=== PATIENT | female | born 1950 | race Caucasian/White ===

== ENCOUNTER → 2018-01-06 06:55 | Outpatient (CLI) | payer MEDICARE, OTHER, SELFPAY ==
[2018-01-06 08:15] LABS: ALB/GLOB Ratio 1.2 RATIO (0.9-2.4); AST(SGOT) 13 U/L (15-37); Alanine Aminotransfer ALT/SGPT 20 U/L (13-56); Albumin, Serum 3.8 g/dL (3.2-5.0); Alkaline Phosphatase 81 U/L (45-117); Anion Gap 8 (5-15); BUN 13 mg/dL (7-18); BUN/Creat Ratio 16.6 RATIO (10-20); Calcium,Total 8.6 mg/dL (8.5-10.1); Chloride 107 mmol/L (98-107); Cholesterol 217 mg/dL (200); Creatinine, Serum 0.78 mg/dL (0.55-1.02); EST Glomerular Filtration Rate 77 mL/min (>60); Est Glom Filt Rate - Afr Amer 94 mL/min (>60); Globulin 3.2 g/dL (2.2-4.2); Glucose 91 mg/dL (74-106); High Density Lipoprotein 65 mg/dL; Potassium 4.1 mmol/L (3.5-5.1); Sodium Level 145 mmol/L (136-145); Triglycerides 114 mg/dL; Very Low Density Lipoprotein 23 mg/dL (5-40)
== END ==
PROVIDERS: Family Provider Internal Medicine; PCP Internal Medicine; Visit Provider Internal Medicine
DX: E78.5 Hyperlipidemia, unspecified (principal)
CPT/HCPCS: 36415; 80053; 80061

== ENCOUNTER → 2018-01-11 08:47 | Outpatient (CLI) | payer MEDICARE, OTHER, SELFPAY ==
--- NOTE | 2018-01-11 08:52 | BD_ITS ---
STUDY: DUAL ENERGY X-RAY ABSORPTIOMETRY / DXA REASON FOR EXAM: Female, 67 years old. The patient is postmenopausal. Loss of height. TECHNIQUE: Bone Mineral Density (BMD) measurements of lumbar spine and bilateral hips were obtained. COMPARISON: Comparison is made with prior study dated December 06, 2001. FINDINGS: Lumbar Spine (L1-L4): g/cm2 (1.112) / T-score (-0.6) / Z-score (1.1) Findings are suggestive of normal bone density with a low fracture risk. Increased thoracic kyphosis. Left Femur Total: g/cm2 (0.954) / T-score (-0.4) / Z-score (1.0) Left Femoral Neck: g/cm2 (0.852) / T-score (-1.3) / Z-score (0.3) Right Femur Total: g/cm2 (0.917) / T-score (-0.7) / Z-score (0.7) Right Femoral Neck: g/cm2 (0.877) / T-score (-1.2) / Z-score (0.5) The T-Scores on the most recent prior examination were: Lumbar Spine (L1-L4): There has been worsening of bone density since the previous examination. Left Femur Total: which represents a worsening of 5.8%. BD/Dexa Bone Density Study IMPRESSION: The patient is considered osteopenic as outlined below according to World Michael Organization (WHO) criteria with a moderate fracture risk. There has been worsening of bone density since the previous examination. Reference Information: The T-score is the number of standard deviations above or below the standard which is normal for young adults at their peak bone mineral density. The World Health Organization (WHO) interprets the T-scores as follows: Above -1 Normal bone density Between -1 and -2.5 Osteopenia Equal to / or below -2.5 Osteoporosis As a practical clinical guideline, osteopenia may be graded as follows: Mild -1 through -1.5 Moderate -1.6 through -2.0 Severe -2.1 through -2.4 The Z-score is the number of standard deviations above or below age-matched controls. A Z-score of less than -1.5 would be considered abnormal. References: 1. NIH Osteoporosis and Related Bone Diseases http://www.osteo.org 2. International Society for Clinical Densitometry http://www.iscd.org 3. National Osteoporosis Foundation http://www.nof.org Electronically Signed: Jim Mccracken MD at 8:32 EDT Tel [phone], Service support ,
== END ==
PROVIDERS: Family Provider Internal Medicine; PCP Internal Medicine; Visit Provider Internal Medicine
DX: M85.80 Other specified disorders of bone density and structure, unspecified site (principal); Z78.0 Asymptomatic menopausal state
CPT/HCPCS: 77080

== ENCOUNTER → 2018-02-28 08:26 | Outpatient (CLI) | payer MEDICARE, OTHER, SELFPAY ==
--- NOTE | 2018-02-28 08:28 | BI_ITS ---
MAMMOGRAPHY - BILATERAL SCREENING 3-D BRYANNA SYNTHESIS REASON FOR EXAM: Female, 67 years old. Bilateral Screening 3-D tomosynthesis PERTINENT HISTORY: Asymptomatic. [place] bilateral inverted nipples perpetration. Family breast carcinoma, grandmother age 60. TECHNIQUE: 2-D mammograms and 3-D Bryanna synthesis of the breast (s) were performed. CAD was performed. COMPARISON: 02/25/2017, 02/26/2016 FINDINGS: The breast composition is composed of scattered fibroglandular density. No new asymmetric density, dominant mass, dense spiculated masses, abnormal clustered microcalcifications, architectural distortion or skin thickening identified. Bilateral inverted nipples noted as given in history. There has been no significant change since the prior study. BI/SCREENING MAMM (CAD), BILAT IMPRESSION: No mammographic signs of malignancy. Routine yearly mammograms recommended. ASSESSMENT CATEGORY: BIRADS Category 2: Benign. A letter regarding these results will be sent to the patient by the facility within 30 days. FOLLOW UP RECOMMENDATION: Yearly follow up mammogram recommended. (A) Negative results should not deter biopsy as a palpable lesion should be followed on clinical grounds and biopsy performed if clinically persistent for 3 months or increasing size. Approximately 10% of breast cancers are not detected by mammography. A normal mammogram should not delay biopsy of a clinically suspicious abnormality. Electronically Signed: Darrell Quijano, at 20:03 EDT Tel , Service support ,
== END ==
PROVIDERS: Family Provider Internal Medicine; PCP Internal Medicine; Visit Provider Internal Medicine
DX: Z12.31 Encounter for screening mammogram for malignant neoplasm of breast (principal)
CPT/HCPCS: 77063; 77067

== ENCOUNTER → 2019-01-10 | Outpatient (CLI) | payer MEDICARE, OTHER, SELFPAY ==
[2018-07-05 14:40] VITALS: BMI 23.0
[2019-01-10 07:38] LABS: Hematocrit 40.7 % (37-47); Hemoglobin 13.3 g/dl (12.0-15.0); Mean Corpuscular Volume 97.4 fL (81-99); Red Blood Count 4.18 M/mm3 (4.2-5.4); White Blood Count 4.9 K/mm3 (4.4-11.0)
[2019-01-10 07:39] LABS: Absolute Lymphocyte Count 2.14 X10^3/ul (0.83-4.51); Absolute Neutrophil Count 2.3 X10^3/uL (2.0-7.7); Basophil# 0.03 X10^3/uL; Basophil% 0.6 % (0-1); Eosinophil# 0.09 X10^3/uL; Eosinophils% 1.8 % (0-5); Lymphocyte # 2.14 X10^3/ul (4.0); Lymphocyte % 43.9 % (19-41); Mean Corp Hgb Conc 32.7 g/gl (32-36); Mean Corpuscular Hgb 31.8 pg (27.0-32.0); Monocyte# 0.32 X10^3/uL; Monocyte% 6.6 % (0-10); Neutrophil % 47.1 % (47-70); POSITIVE COUNT NO; POSITIVE DIFFERENTIAL NO; POSITIVE MORPHOLOGY NO; Platelet Count 246 K/mm3 (150-450); RBC Distribution Width CV 12.1 % (11.6-14.6); RBC Distribution Width SD 42.8 fl (35.1-43.9)
[2019-01-10 07:51] LABS: Anion Gap 7 (5-15); BUN 10 mg/dL (7-18); BUN/Creat Ratio 13.9 RATIO (10-20); Calcium,Total 8.6 mg/dL (8.5-10.1); Chloride 106 mmol/L (98-107); Cholesterol 224 mg/dL (200); Creatinine, Serum 0.72 mg/dL (0.55-1.02); EST Glomerular Filtration Rate 85 mL/min (>60); Est Glom Filt Rate - Afr Amer 103 mL/min (>60); Glucose 90 mg/dL (74-106); High Density Lipoprotein 79 mg/dL; Potassium 3.9 mmol/L (3.5-5.1); Sodium Level 142 mmol/L (136-145); Triglycerides 123 mg/dL; Very Low Density Lipoprotein 25 mg/dL (5-40)
== END | disposition home or self-care (01) ==
LOC: LAB 07:06
PROVIDERS: Family Provider Internal Medicine; PCP Internal Medicine; Referring Provider Internal Medicine; Visit Provider Internal Medicine
DX: E78.5 Hyperlipidemia, unspecified (principal); M85.80 Other specified disorders of bone density and structure, unspecified site
CPT/HCPCS: 36415; 80048; 80061; 85025

== ENCOUNTER → 2019-03-02 07:47 | Outpatient (CLI) | payer MEDICARE, OTHER, SELFPAY ==
[2018-07-05 14:40] VITALS: BMI 23.0
[2019-01-23 09:04] VITALS: BMI 23.0
--- NOTE | 2019-03-02 07:48 | BI_ITS ---
MAMMOGRAPHY - BILATERAL SCREENING REASON FOR EXAM: Female, 68 years old. Routine annual screening examination. PERTINENT HISTORY: Grandmother with breast cancer. Chronic inversion of both nipples. TECHNIQUE: Digital bilateral breast bryanna (3D mammographic acquisition) in the CC and MLO projections. 2-D mediolateral oblique (MLO) and craniocaudad (CC) views of both breasts were obtained. CAD: Full Field Digital Mammography with Computer Added Detection was performed. COMPARISON: Comparison is made with prior study dated February 28, 2018. FINDINGS: Breast Composition: The breasts are heterogeneously dense, which may obscure small masses. There are no dominant masses or suspicious calcifications. No other significant abnormalities are identified. There has been no significant change since the prior study. BI/SCREEN MAMM (CAD) W/BRYANNA BILAT IMPRESSION: Stable bilateral screening mammogram. Yearly follow-up mammogram recommended. (A) ASSESSMENT CATEGORY: BIRADS Category 1: Negative. A letter regarding these results will be sent to the patient by the facility within 30 days. Approximately 10% of breast cancers are not detected by mammography. A normal mammogram should not delay biopsy of a clinically suspicious abnormality. [id number] Electronically Signed: Jim Mccracken, at 8:55 EDT , Service support ,
== END ==
PROVIDERS: Family Provider Internal Medicine; PCP Internal Medicine; Referring Provider Internal Medicine; Visit Provider Internal Medicine
DX: Z12.31 Encounter for screening mammogram for malignant neoplasm of breast (principal); Z80.3 Family history of malignant neoplasm of breast
CPT/HCPCS: 77063; 77067

== ENCOUNTER → 2020-01-12 09:42 | Outpatient (CLI) | payer MEDICARE, OTHER, SELFPAY ==
[2020-01-12 09:20] VITALS: BMI 23.0
[2020-01-12 12:17] LABS: Absolute Lymphocyte Count 1.33 X10^3/uL (0.83-4.51); Absolute Neutrophil Count 2.6 X10^3/uL (2.0-7.7); Basophil# 0.02 X10^3/uL; Basophil% 0.5 % (0-1); Eosinophil# 0.03 X10^3/uL; Eosinophils% 0.7 % (0-5); Hematocrit 39.8 % (37-47); Hemoglobin 12.7 g/dL (12.0-15.0); Lymphocyte # 1.33 X10^3/ul (4.0); Lymphocyte % 31.1 % (19-41); Mean Corp Hgb Conc 31.9 g/dL (32-36); Mean Corpuscular Hgb 31.8 pg (27.0-32.0); Mean Corpuscular Volume 99.5 fL (81-99); Mean Platelet Vol. 9.5 fl (6.2-12.0); Monocyte# 0.29 X10^3/uL; Monocyte% 6.8 % (0-10); NRBC Flagged by Analyzer 0 % (0-5); Neutrophil % 60.7 % (47-70); POSITIVE MORPHOLOGY YES; Platelet Count 263 K/mm3 (150-450); RBC Distribution Width CV 11.3 % (11.6-14.6); RBC Distribution Width SD 41.3 fl (35.1-43.9); White Blood Count 4.3 K/mm3 (4.4-11.0)
[2020-01-12 12:25] LABS: Differential Indicated SCAN CRITERIA MET
[2020-01-12 12:37] LABS: ALB/GLOB Ratio 1.2 RATIO (0.9-2.4); AST(SGOT) 17 U/L (15-37); Alanine Aminotransfer ALT/SGPT 23 U/L (13-56); Albumin, Serum 3.8 g/dL (3.2-5.0); Alkaline Phosphatase 82 U/L (45-117); Anion Gap 6 (5-15); BUN 14 mg/dL (7-18); BUN/Creat Ratio 19.1 RATIO (10-20); Chloride 104 mmol/L (98-107); Creatinine, Serum 0.73 mg/dL (0.55-1.02); EST Glomerular Filtration Rate 83 mL/min (>60); Est Glom Filt Rate - Afr Amer 101 mL/min (>60); Globulin 3.3 g/dL (2.2-4.2); Glucose 79 mg/dL (74-106); Potassium 3.8 mmol/L (3.5-5.1); Protein, Total 7.1 g/dL (6.4-8.2); Sodium Level 140 mmol/L (136-145)
[2020-01-12 12:40] LABS: Vitamin D,25 Hydroxy 36.1 ng/mL
== END ==
PROVIDERS: PCP Internal Medicine; Referring Provider Internal Medicine; Visit Provider Internal Medicine
DX: M85.80 Other specified disorders of bone density and structure, unspecified site (principal); E78.5 Hyperlipidemia, unspecified; F41.8 Other specified anxiety disorders
CPT/HCPCS: 36415; 80053; 82306; 85025

== ENCOUNTER → 2020-03-07 16:39 | Outpatient (CLI) | payer MEDICARE, OTHER, SELFPAY ==
[2020-03-07 16:34] VITALS: BMI 23.0
--- NOTE | 2020-03-07 16:41 | RAD_ITS ---
STUDY: X-RAY CHEST REASON FOR EXAM: Female, 69 years old. COUGH, CONGESTION, SORE THROAT, SERRANO, LOW GRADE FEVER TECHNIQUE: PA and lateral views of the chest. COMPARISON: None. FINDINGS: The lungs are clear and expanded. There is no demonstrated pleural abnormality. Normal size heart. Normal mediastinum and rufus. Normal visualized pulmonary arteries. Normal visualized aortic arch and descending thoracic aorta. Mild thoracolumbar dextroscoliosis. Soft tissues and bony structures are otherwise unremarkable. RAD/Chest PA and Lateral IMPRESSION: No acute findings. Electronically Signed: Gloria Moreno MD at 17:46 EDT Tel , Service support ,
== END ==
PROVIDERS: PCP Internal Medicine; Referring Provider Physician Assistant Surgical; Visit Provider Physician Assistant Surgical
DX: R09.89 Other specified symptoms and signs involving the circulatory and respiratory systems (principal)
CPT/HCPCS: 71046

== ENCOUNTER → 2020-03-08 10:26 | Outpatient (CLI) | payer MEDICARE, OTHER, SELFPAY ==
[2020-03-07 16:34] VITALS: BMI 23.0
== END ==
PROVIDERS: PCP Internal Medicine; Referring Provider Physician Assistant Surgical; Visit Provider Physician Assistant Surgical
DX: Z20.828 Contact with and (suspected) exposure to other viral communicable diseases (principal)
CPT/HCPCS: 87635; 94799; U0003

== ENCOUNTER → 2020-03-26 10:28 | Outpatient (CLI) | payer MEDICARE, OTHER, SELFPAY ==
[2020-01-12 09:20] VITALS: BMI 23.0
[2020-03-07 16:34] VITALS: BMI 23.0
--- NOTE | 2020-03-26 10:29 | BI_ITS ---
MAMMOGRAPHY - BILATERAL SCREENING REASON FOR EXAM: Female, 69 years old. Routine annual screening examination. PERTINENT HISTORY: Grandmother with breast cancer. Chronic inversion of both nipples. TECHNIQUE: Digital bilateral breast bryanna (3D mammographic acquisition) in the CC and MLO projections. 2-D mediolateral oblique (MLO) and craniocaudad (CC) views of both breasts were obtained. CAD: Full Field Digital Mammography with Computer Added Detection was performed. COMPARISON: Comparison is made with prior study dated 03/02/2019 and 02/28/2018. FINDINGS: Breast Composition: The breasts are heterogeneously dense, which may obscure small masses. There are no dominant masses or suspicious calcifications. No other significant abnormalities are identified. There has been no significant change since the prior study. BI/SCREEN MAMM (CAD) W/BRYANNA BILAT IMPRESSION: Stable bilateral screening mammogram. Yearly follow-up mammogram recommended. (A) ASSESSMENT CATEGORY: BIRADS Category 2: Benign. A letter regarding these results will be sent to the patient by the facility within 30 days. Approximately 10% of breast cancers are not detected by mammography. A normal mammogram should not delay biopsy of a clinically suspicious abnormality. [id number] Electronically Signed: Jim Mccracken, at 12:30 EDT , Service support ,
== END ==
PROVIDERS: PCP Internal Medicine; Referring Provider Internal Medicine; Visit Provider Internal Medicine
DX: Z12.31 Encounter for screening mammogram for malignant neoplasm of breast (principal); Z80.3 Family history of malignant neoplasm of breast
CPT/HCPCS: 77063; 77067

== ENCOUNTER 2020-09-26 14:28 | Outpatient (RCR) | payer MEDICARE, SELFPAY ==
[2020-09-23 13:30] VITALS: BMI 21.2
[2020-09-26] MEDS: COVID-19 VACC, MRNA(PFIZER)/PF 30 MCG/0.3 ML SYRINGE IM (08:19)
[2020-10-17] MEDS: COVID-19 VACC, MRNA(PFIZER)/PF 30 MCG/0.3 ML SYRINGE IM (08:01)
== END 2020-09-26 23:59 ==
LOC: IMMUN 14:28
PROVIDERS: PCP Internal Medicine; Visit Provider Family Medicine
DX: Z23 Encounter for immunization (principal)
CPT/HCPCS: 0001A; 0002A

== ENCOUNTER → 2020-12-30 14:22 | Outpatient (CLI) | payer MEDICARE, SELFPAY ==
[2020-12-30 13:35] VITALS: BMI 21.2
[2020-12-30 15:43] LABS: Absolute Lymphocyte Count 1.98 X10^3/uL (0.83-4.51); Absolute Neutrophil Count 2.6 X10^3/uL (2.0-7.7); Basophil# 0.04 X10^3/uL; Basophil% 0.8 % (0-1); Eosinophil# 0.04 X10^3/uL; Eosinophils% 0.8 % (0-5); Hematocrit 38.2 % (37-47); Lymphocyte # 1.98 X10^3/ul (0.83-4.51); Lymphocyte % 39.2 % (19-41); Mean Corp Hgb Conc 31.4 g/dL (32-36); Mean Corpuscular Hgb 31.1 pg (27.0-32.0); Mean Platelet Vol. 9.2 fl (6.2-12.0); Monocyte# 0.42 X10^3/uL; Monocyte% 8.3 % (0-10); NRBC Flagged by Analyzer 0 % (0-5); Neutrophil # 2.56 X10^3/uL (2.7-7.7); Neutrophil % 50.7 % (47-70); Platelet Count 272 K/mm3 (150-450); RBC Distribution Width CV 11.7 % (11.6-14.6); RBC Distribution Width SD 42.5 fl (35.1-43.9); Red Blood Count 3.86 M/mm3 (4.2-5.4); White Blood Count 5.1 K/mm3 (4.4-11.0)
[2020-12-30 16:21] LABS: ALB/GLOB Ratio 1.1 RATIO (0.9-2.4); AST(SGOT) 13 U/L (15-37); Alanine Aminotransfer ALT/SGPT 23 U/L (13-56); Albumin, Serum 3.5 g/dL (3.2-5.0); Alkaline Phosphatase 78 U/L (45-117); Anion Gap 7 (5-15); BUN 12 mg/dL (7-18); BUN/Creat Ratio 16.6 RATIO (10-20); Calcium,Total 8.7 mg/dL (8.5-10.1); Chloride 106 mmol/L (98-107); Cholesterol 215 mg/dL (200); Creatinine, Serum 0.72 mg/dL (0.55-1.02); EST Glomerular Filtration Rate 84 mL/min (>60); Est Glom Filt Rate - Afr Amer 102 mL/min (>60); Globulin 3.3 g/dL (2.2-4.2); Glucose 69 mg/dL (74-106); High Density Lipoprotein 70 mg/dL; Potassium 3.7 mmol/L (3.5-5.1); Protein, Total 6.8 g/dL (6.4-8.2); Sodium Level 142 mmol/L (136-145); Triglycerides 222 mg/dL; Very Low Density Lipoprotein 44 mg/dL (5-40)
== END ==
PROVIDERS: PCP Internal Medicine; Visit Provider Internal Medicine
DX: E78.5 Hyperlipidemia, unspecified (principal); F41.8 Other specified anxiety disorders
CPT/HCPCS: 36415; 80053; 80061; 85025

== ENCOUNTER → 2021-03-27 09:25 | Outpatient (CLI) | payer MEDICARE, OTHER, SELFPAY ==
[2020-12-30 13:35] VITALS: BMI 21.2
--- NOTE | 2021-03-27 09:31 | BI_ITS ---
MAMMOGRAPHY - BILATERAL SCREENING 3-D TOMOSYNTHESIS REASON FOR EXAM: Female, 70 years old. Breast cancer screening PERTINENT HISTORY: No significant family history. TECHNIQUE: 2-D mammograms and 3-D Tomosynthesis of the breast (s) were performed. CAD was performed. COMPARISON: 03/26/2020 FINDINGS: The breast composition is heterogeneously dense that can obscure small breast masses. Scattered benign calcifications are seen. No dense spiculated masses or suspicious microcalcifications are identified. No architectural distortion is identified. There is no skin thickening or retraction. There has been no significant change since the prior study. BI/SCRN MAMM (CAD)W/BRYANNA BILAT IMPRESSION: No mammographic signs of malignancy. Routine yearly mammograms recommended. ASSESSMENT CATEGORY: BIRADS Category 1: Negative. A letter regarding these results will be sent to the patient by the facility within 30 days. FOLLOW UP RECOMMENDATION: Yearly follow up mammogram recommended. (A) Approximately 10% of breast cancers are not detected by mammography. A normal mammogram should not delay biopsy of a clinically suspicious abnormality. Electronically Signed: Anastacio Ordonez MD at 10:33 EDT Tel , Service support ,
--- NOTE | 2021-03-27 09:34 | BD_ITS ---
STUDY: DUAL ENERGY X-RAY ABSORPTIOMETRY / DXA REASON FOR EXAM: Female, 70 years old. Osteopenia TECHNIQUE: Bone Mineral Density (BMD) measurements of lumbar spine and bilateral hips were obtained. COMPARISON: None. FINDINGS: Lumbar Spine (L1-L4): g/cm2 (0.940) / T-score (-1.0) / Z-score (1.3) Findings are suggestive of normal-borderline osteopenia with a low to moderate fracture risk. Left Femur Total: g/cm2 (0.888) / T-score (-0.4) / Z-score (1.2) Left Femoral Neck: g/cm2 (0.769) / T-score (-0.7) / Z-score (1.2) Right Femur Total: g/cm2 (0.781) / T-score (-1.3) / Z-score (0.3) Right Femoral Neck: g/cm2 (0.717) / T-score (-1.2) / Z-score (0.7) The T-Scores on the most recent prior examination were: Lumbar Spine (L1-L4): There has been slight worsening of bone density since the previous examination. Left Femur Total: -0.4 which represents no significant change. . Right Femur Total: -1.3 which represents slight worsening since previous exam, previous -0.7 . BD/Dexa Bone Density Study IMPRESSION: The patient is considered normal-borderline osteopenic as outlined below according to World Michael Organization (WHO) criteria with a low to moderate fracture risk. There has been slight worsening of bone density since the previous examination. Reference Information: The T-score is the number of standard deviations above or below the standard which is normal for young adults at their peak bone mineral density. The World Health Organization (WHO) interprets the T-scores as follows: Above -1 Normal bone density Between -1 and -2.5 Osteopenia Equal to / or below -2.5 Osteoporosis As a practical clinical guideline, osteopenia may be graded as follows: Mild -1 through -1.5 Moderate -1.6 through -2.0 Severe -2.1 through -2.4 The Z-score is the number of standard deviations above or below age-matched controls. A Z-score of less than -1.5 would be considered abnormal. References: 1. NIH Osteoporosis and Related Bone Diseases www osteo.org 2. International Society for Clinical Densitometry www iscd.org 3. National Osteoporosis Foundation www nof.org Electronically Signed: Ellen Smith MD at 3:00 EDT , Service support ,
== END ==
PROVIDERS: PCP Internal Medicine; Referring Provider Internal Medicine; Visit Provider Internal Medicine
DX: Z12.31 Encounter for screening mammogram for malignant neoplasm of breast (principal); N95.9 Unspecified menopausal and perimenopausal disorder
CPT/HCPCS: 77063; 77067; 77080

== ENCOUNTER → 2022-01-12 | Outpatient (CLI) | payer MEDICARE, OTHER, SELFPAY ==
[2022-01-12 15:20] LABS: Absolute Lymphocyte Count 1.07 X10^3/uL (0.83-4.51); Absolute Neutrophil Count 9.1 X10^3/uL (2.0-7.7); Basophil# 0.01 X10^3/uL; Basophil% 0.1 % (0-1); Hematocrit 41.8 % (37-47); Hemoglobin 13.4 g/dL (12.0-15.0); Lymphocyte # 1.07 X10^3/ul (0.83-4.51); Lymphocyte % 10.3 % (19-41); Mean Corp Hgb Conc 32.1 g/dL (32-36); Mean Corpuscular Hgb 32.1 pg (27.0-32.0); Mean Corpuscular Volume 100.2 fL (81-99); Mean Platelet Vol. 9.3 fl (6.2-12.0); Monocyte# 0.13 X10^3/uL; Monocyte% 1.2 % (0-10); NRBC Flagged by Analyzer 0 % (0-5); Neutrophil # 9.14 X10^3/uL (2.7-7.7); Neutrophil % 87.6 % (47-70); Platelet Count 319 K/mm3 (150-450); RBC Distribution Width SD 44.7 fl (35.1-43.9); Red Blood Count 4.17 M/mm3 (4.2-5.4); White Blood Count 10.4 K/mm3 (4.4-11.0)
[2022-01-12 16:03] LABS: ALB/GLOB Ratio 1.2 RATIO (0.9-2.4); AST(SGOT) 12 U/L (15-37); Alanine Aminotransfer ALT/SGPT 28 U/L (13-56); Albumin, Serum 3.7 g/dL (3.2-5.0); Alkaline Phosphatase 80 U/L (45-117); Anion Gap 4 (5-15); BUN 15 mg/dL (7-18); BUN/Creat Ratio 14.7 RATIO (10-20); Calcium,Total 9.1 mg/dL (8.5-10.1); Chloride 104 mmol/L (98-107); Cholesterol 236 mg/dL (200); Creatinine, Serum 1.02 mg/dL (0.55-1.02); EST Glomerular Filtration Rate 56 mL/min (>60); Est Glom Filt Rate - Afr Amer 68 mL/min (>60); Globulin 3.2 g/dL (2.2-4.2); Glucose 137 mg/dL (74-106); High Density Lipoprotein 101 mg/dL; Potassium 4.3 mmol/L (3.5-5.1); Protein, Total 6.9 g/dL (6.4-8.2); Sodium Level 140 mmol/L (136-145); Triglycerides 103 mg/dL; Very Low Density Lipoprotein 21 mg/dL (5-40)
== END | disposition home or self-care (01) ==
LOC: BIMLAB 13:33
PROVIDERS: PCP Internal Medicine; Referring Provider Internal Medicine; Visit Provider Internal Medicine
DX: I10 Essential (primary) hypertension (principal); M85.80 Other specified disorders of bone density and structure, unspecified site
CPT/HCPCS: 36415; 80053; 80061; 82306; 85025

== ENCOUNTER → 2022-02-12 | Outpatient (CLI) | payer MEDICARE, OTHER, SELFPAY ==
[2022-02-12 12:28] LABS: Anion Gap 3 (5-15); BUN 12 mg/dL (7-18); BUN/Creat Ratio 15.6 RATIO (10-20); Calcium,Total 9.3 mg/dL (8.5-10.1); Chloride 106 mmol/L (98-107); Creatinine, Serum 0.77 mg/dL (0.55-1.02); EST Glomerular Filtration Rate 78 mL/min (>60); Est Glom Filt Rate - Afr Amer 94 mL/min (>60); Glucose 83 mg/dL (74-106); Potassium 4.6 mmol/L (3.5-5.1); Sodium Level 140 mmol/L (136-145)
== END | disposition home or self-care (01) ==
LOC: BIMLAB 08:13
PROVIDERS: PCP Internal Medicine; Referring Provider Internal Medicine; Visit Provider Internal Medicine
DX: N17.9 Acute kidney failure, unspecified (principal)
CPT/HCPCS: 36415; 80048

== ENCOUNTER → 2022-03-31 | Outpatient (CLI) | payer MEDICARE, OTHER, SELFPAY ==
--- NOTE | 2022-03-31 08:34 | BI_ITS ---
MAMMOGRAPHY - BILATERAL SCREENING REASON FOR EXAM: Female, 71 years old. Routine annual screening examination. PERTINENT HISTORY: Grandmother with breast cancer. Chronic inversion of both nipples. TECHNIQUE: Digital bilateral breast bryanna (3D mammographic acquisition) in the CC and MLO projections. 2-D mediolateral oblique (MLO) and craniocaudad (CC) views of both breasts were obtained. CAD: Full Field Digital Mammography with Computer Added Detection was performed. COMPARISON: Comparison is made with prior study 03/27/2021 and 03/26/2020. FINDINGS: Breast Composition: The breasts are heterogeneously dense, which may obscure small masses. There are no dominant masses or suspicious calcifications. No other significant abnormalities are identified. There has been no significant change since the prior study. BI/SCRN MAMM (CAD)W/BRYANNA BILAT IMPRESSION: Stable bilateral screening mammogram. Yearly follow-up mammogram recommended. (A) ASSESSMENT CATEGORY: BIRADS Category 1: Negative. A letter regarding these results will be sent to the patient by the facility within 30 days. Approximately 10% of breast cancers are not detected by mammography. A normal mammogram should not delay biopsy of a clinically suspicious abnormality. [id number] Electronically Signed: Jim Mccracken MD at 8:37 EDT ,
== END | disposition home or self-care (01) ==
LOC: OPBI 08:33
PROVIDERS: PCP Internal Medicine; Visit Provider Internal Medicine
DX: Z12.31 Encounter for screening mammogram for malignant neoplasm of breast (principal); N64.59 Other signs and symptoms in breast; Z80.3 Family history of malignant neoplasm of breast
CPT/HCPCS: 77063; 77067

== ENCOUNTER 2022-07-05 09:35 | Emergency (ER) | payer MEDICARE, OTHER, SELFPAY ==
[2022-07-05 09:36] VITALS: BP 160/94; PULSE 78; RESP 16; TEMP 36.8; O2SAT 95; BMI 24.6
--- NOTE | 2022-07-05 10:05 | EDS_ITS ---
HPI HPI - Fall History of Present Illness Chief Complaint: Fall Informant: patient Narrative Narrative: About an hour ago patient missed the bottom step at [employer]. This caused her to fall forward as she was walking down the steps. She fell into the wall that was next to them. She hit her right rib cage. She did not hit her head. There is no loss of consciousness. She points to the right posterior lateral rib area as her source of pain. She has had problems with sciatica before but is not having any pain anywhere near the lower back. In fact she has no midline spinal pain anywhere. She is not on any blood thinners. Motion or very deep breaths make the pain worse. Pressing in the area makes it worse. Rest and not moving makes it better. She is not actually short of breath. [facility] Medical History Acute kidney injury Anxiety and depression Chronic back pain Health care maintenance Hyperlipidemia Hypertension Poison gisela dermatitis Routine health maintenance Seasonal allergies Home Medications cholecalciferol (vitamin D3) 25 mcg (1,000 unit) capsule 1,000 unit PO ONCE 07/16/17 [History Last Taken Unknown] fish oil-dha-epa 1,200 mg-144 mg-216 mg capsule cap PO 07/16/17 [History Last Taken Unknown] multivitamin 1 tab PO QAM 07/16/17 [History Last Taken Unknown] ibuprofen 400 mg tablet 400 mg PO BID PRN pain #60 tabs 09/23/20 [Rx Last Taken Unknown] blood pressure monitor #1 ea 09/24/20 [Rx Last Taken Unknown] fexofenadine 60 mg tablet (Carmina Allergy) 60 mg PO BID #60 tabs 12/29/21 [Rx Last Taken Unknown] betamethasone, augmented 0.05 % topical cream applic topical 01/12/22 [History Last Taken Unknown] prednisone 20 mg tablet mg PO 01/12/22 [History Last Taken Unknown] citalopram 10 mg tablet 10 mg PO QDAY #90 tabs 01/27/22 [Rx Last Taken Unknown] oxycodone-acetaminophen 5 mg-325 mg tablet (Percocet) 1 tab PO Q6H PRN pain 5 days #20 tabs 07/05/22 [Rx Last Taken Unknown] Allergy/AdvReac Type Severity Reaction Status Date / Time erythromycin base Allergy Unknown Unknown Verified 01/12/22 13:12 loratadine [From Claritin] Allergy Unknown Unknown Verified 01/12/22 13:12 naproxen [From Aleve] Allergy Rash Verified 01/12/22 13:12 Family History Father Heart disease developed in his 90s Cancer skin CA in his 90s Mother Heart disease developed in her 90s Surgical History History of tonsillectomy Social History Smoking Status: Never smoker alcohol intake: never substance use type: does not use what type of physical activity do you participate in: walking and yoga frequency: daily ROS ROS ED Constitutional Constitutional ED: Denies fever(s) Eyes Eyes: Denies blurry vision, change in vision or diplopia ENT ENT ED: Denies rhinorrhea Cardiovascular Cardiovascular: Reports chest pain; Denies palpitations or racing heartbeat Respiratory/Chest Respiratory/Chest: Denies cough, dyspnea or sputum Gastrointestinal Gastrointestinal: Denies abdominal pain, nausea or vomiting Genitourinary Genitourinary ED: Denies hematuria Musculoskeletal Musculoskeletal: Reports other Details: See history of present illness. ; Denies neck pain Integumentary Denies Abrasions Neurologic Neurologic: Denies headache(s), paresthesias or weakness Hematologic/Lymphatic Hematologic/Lymphatic: Denies easy bleeding or easy bruising Allergic/Immunologic Allergic/Immunologic ED: Denies urticaria EXAM Physical Exam Const Vital Signs: 07/05/22 09:36 07/05/22 09:39 Temperature 98.3 F Temperature Source Temporal Pulse Rate 78 Respiratory Rate 16 Respiratory Effort Normal Blood Pressure 160/94 H Blood Pressure Mean 116 Pulse Ox 95 Oxygen Delivery Method Room Air Positive well nourished and well developed General Appearance ED: well developed HEENT Reports normocephalic atraumatic; Negative for trauma, contusion, hematoma or tenderness Eyes EOMs intact bilaterally Neck full ROM and no lymphadenopathy General: Negative for tenderness Chest Wall inspection of chest normal Chest Narrative: I see no bruising or swelling at this time. Resp normal respiratory effort Resp Narrative: Breathing is actually easy and unlabored. Saturations are 94 to 98% on room air showing no hypoxia. There is some right posterior lateral rib tenderness but I do not feel crepitance. I do not feel subcu air. Cardio regular rate, regular rhythm and no murmurs Cardio Narrative: No muffled heart tones GI non-tender Back/Spine no CVA tenderness Extremity Extremity Narrative: Free range of motion of all extremities. No pain with motion. No pain with lifting her legs or compression over the hips. Neuro no focal motor deficits and no sensory deficits noted Sensorium / Orientation: alert Psych mental status grossly normal Skin Skin Narrative: No contusions or abrasions he had at this time. MDM MDM MDM Narrative Medical decision making narrative: X-rays do show possible fracture of the right second rib. Considering the clinical picture and location I think this is acute. I discussed with patient plan. Although she is allergic to Aleve she has Motrin 400 at home and will take this for pain. I will write for some Percocet because I think she may need something stronger. We will give her incentive spirometer. We discussed care and reasons to return including risks of pneumonia. We will walk the patient in the department. If there is anything else that develops discomfort or pain we we will evaluate that further at that time. At this time nothing else is hurting her. Radiography Diagnostic Testing: Clinical Impression(s) from Imaging Studies Ribs w/Chest X-Ray 07/05/22 10:13 IMPRESSION: No acute cardiopulmonary abnormality. Nondisplaced acute versus chronic fracture of the right seventh rib. Electronically Signed: Akbar Mi MD at 10:45 EST Reading Location ID and State: [facility] / [place] Tel , Service support , 3 views of the patient's chest and right ribs looked at by me and read by radiology show suspected small nondisplaced fracture of the right seventh rib. Discharge Plan Triage Chief Complaint: Fall ED Provider: Andi Villatoro Dx/Rx/DC Orders Clinical Impression: Fall from steps, Right rib fracture Instructions: ED Rib Fracture Prescriptions: New oxycodone-acetaminophen [Percocet] 5-325 mg tablet 1 tab PO Q6H PRN (Reason: pain) 5 Days Qty: 20 0RF No Action multivitamin tablet 1 tab PO QAM cholecalciferol (vitamin D3) 1,000 unit capsule 1,000 unit PO ONCE fish oil-dha-epa 1,200-144-216 mg capsule PO ibuprofen 400 mg tablet 400 mg PO BID PRN (Reason: pain) Qty: 60 1RF betamethasone, augmented 0.05 % cream topical prednisone 20 mg tablet PO fexofenadine [Carmina Allergy] 60 mg tablet 60 mg PO BID Qty: 60 0RF (DME) blood pressure monitor Kit See Rx Instructions .MEDSUPPLY Qty: 1 0RF Rx Instructions: Check blood pressure daily for hypertension I10 citalopram 10 mg tablet 10 mg PO QDAY Qty: 90 3RF Primary Care Provider: Stephane Anna Referrals: Stephane Anna MD [Primary Care Provider] - 1 Week if not improving Disposition Disposition: Home, Self Care
[2022-07-05] MEDS: oxyCODONE 5 MG Tablet PO (10:11)
--- NOTE | 2022-07-05 10:13 | RAD_ITS ---
EXAM: XR RIGHT RIBS AND AP CHEST, 3 OR MORE VIEWS CLINICAL INDICATION: Trauma TECHNIQUE: Frontal and oblique views of the right ribs and frontal view of the chest. This report was created using [employer] report generation technology. COMPARISON: XR Ribs Chest dated 03/07/2020 FINDINGS: LUNGS AND PLEURAL SPACES: Normal. No consolidation or edema. No pneumothorax. No effusion. HEART: Normal. Normal heart size. MEDIASTINUM: No mediastinal or hilar mass. BONES/JOINTS: Mild deformity of the lateral aspect of the right seventh rib which may represent acute or chronic fracture. Moderate dextroscoliosis of the thoracolumbar junction. RAD/Ribs Uni Min 3V w/PA Chest IMPRESSION: No acute cardiopulmonary abnormality. Nondisplaced acute versus chronic fracture of the right seventh rib. Electronically Signed: Akbar Mi MD at 10:45 EST ,
== END 2022-07-05 11:35 | disposition home or self-care (01) ==
PROVIDERS: Emergency Provider Emergency Medicine; PCP Internal Medicine; Visit Provider Emergency Medicine
DX: S22.31XA Fracture of one rib, right side, initial encounter for closed fracture (principal); M54.9 Dorsalgia, unspecified; I10 Essential (primary) hypertension; E78.5 Hyperlipidemia, unspecified; W10.9XXA Fall (on) (from) unspecified stairs and steps, initial encounter; G89.29 Other chronic pain
CPT/HCPCS: 71101; 99284

== ENCOUNTER 2022-10-16 18:35 | Emergency (ER) | payer MEDICARE, OTHER, SELFPAY ==
[2022-10-16 18:37] VITALS: BP 149/93; PULSE 92; RESP 18; TEMP 35.8; O2SAT 97; BMI 24.3
[2022-10-16 20:04] VITALS: BP 146/88; PULSE 86; O2SAT 99
[2022-10-16] MEDS: Ondansetron ODT 4 MG Tablet PO (20:49)
[2022-10-16] MEDS: oxyCODONE 5 MG Tablet PO (20:49)
--- NOTE | 2022-10-16 23:00 | ED.VIS.LOWEX ---
HPI History of Present Illness Chief Complaint: Back Narrative Narrative: 70-year-old female with history of sciatica presenting with right gluteal pain. She states its been present for 8 days. Radiates to her posterior and lateral thigh. She states she tried [id number] NSAIDs and is not helping. Does not have any lower back pain. She is able to ambulate with the difficulty. She states been using heating pads without relief. [facility] Medical History Acute kidney injury Anxiety and depression Chronic back pain Health care maintenance Hyperlipidemia Hypertension Poison gisela dermatitis Routine health maintenance Seasonal allergies Home Medications cholecalciferol (vitamin D3) 25 mcg (1,000 unit) capsule 1,000 unit PO ONCE 07/16/17 [History Last Taken Unknown] fish oil-dha-epa 1,200 mg-144 mg-216 mg capsule cap PO 07/16/17 [History Last Taken Unknown] multivitamin 1 tab PO QAM 07/16/17 [History Last Taken Unknown] ibuprofen 400 mg tablet 400 mg PO BID PRN pain #60 tabs 09/23/20 [Rx Last Taken Unknown] blood pressure monitor #1 ea 09/24/20 [Rx Last Taken Unknown] fexofenadine 60 mg tablet (Carmina Allergy) 60 mg PO BID #60 tabs 12/29/21 [Rx Last Taken Unknown] betamethasone, augmented 0.05 % topical cream applic topical 01/12/22 [History Last Taken Unknown] prednisone 20 mg tablet mg PO 01/12/22 [History Last Taken Unknown] citalopram 10 mg tablet 10 mg PO QDAY #90 tabs 01/27/22 [Rx Last Taken Unknown] oxycodone-acetaminophen 5 mg-325 mg tablet (Percocet) 1 tab PO Q6H PRN pain 5 days #20 tabs 07/05/22 [Rx Last Taken Unknown] ondansetron 4 mg disintegrating tablet 4 mg PO Q8H PRN PRN Nausea #14 tabs 10/16/22 [Rx Last Taken Unknown] oxycodone-acetaminophen 5 mg-325 mg tablet (Percocet) 1 tab PO Q8H PRN pain 3 days #12 tabs 10/16/22 [Rx Last Taken Unknown] Allergy/AdvReac Type Severity Reaction Status Date / Time erythromycin base Allergy Unknown Unknown Verified 10/16/22 18:36 loratadine [From Claritin-D] Allergy Rash Verified 10/16/22 18:36 naproxen [From Aleve] Allergy Rash Verified 10/16/22 18:36 pseudoephedrine Allergy Rash Verified 10/16/22 18:36 [From Claritin-D] Family History Father Heart disease developed in his s Cancer skin CA in his s Mother Heart disease developed in her s Surgical History History of tonsillectomy Social History Smoking Status: Never smoker alcohol intake: never substance use type: does not use what type of physical activity do you participate in: walking and yoga frequency: daily ROS ROS ED Constitutional Constitutional ED: Denies chills, fever(s) or sweats Eyes Eyes: Denies blurry vision or change in vision ENT ENT ED: Denies ear pain or sore throat Cardiovascular Cardiovascular: Denies chest pain, palpitations or racing heartbeat Respiratory/Chest Respiratory/Chest: Denies cough, dyspnea or sputum Gastrointestinal Gastrointestinal: Denies abdominal pain, constipation, diarrhea, nausea or vomiting Genitourinary Genitourinary ED: Denies dysuria, hematuria or urinary frequency Musculoskeletal Musculoskeletal: Reports other Details: Right gluteal pain and right hamstring pain ; Denies arthralgias Integumentary Denies abscess, Abrasions or rash Neurologic Neurologic: Denies headache(s), paresthesias or weakness Psychiatric Psychiatric: Denies anxiety, depression, suicidal ideation or suicidal thoughts Endocrine Endocrinology: Denies polydipsia or polyuria EXAM Physical Exam Const Vital Signs: 10/16/22 18:37 10/16/22 20:04 Temperature 96.5 F L Temperature Source Temporal Pulse Rate 92 86 Respiratory Rate 18 Blood Pressure 149/93 H 146/88 H Blood Pressure Mean 111 107 Pulse Ox 97 99 Oxygen Delivery Method Room Air Room Air Positive well nourished General Appearance ED: NAD HEENT Reports moist mucous membranes Resp normal respiratory effort Cardio regular rate and regular rhythm Extremity Extremity Narrative: Tenderness to palpation in the right gluteal region. She also has some tenderness in the right lateral thigh and posterior thigh. This is worsened with flexion of the hip. Neuro oriented x3 Sensorium / Orientation: alert Motor Exam: strength 5/5 throughout MDM MDM MDM Narrative Medical decision making narrative: Patient presents with symptoms of sciatica. She is tried NSAIDs without relief. She has been doing this for 8 days. Patient states she has had oxycodone before but she would need something for nausea to go with that. She was given Zofran and oxycodone in the ER. She be given a short supply of Percocet for home. I do not believe she needs any imaging today.Return precautions were discussed. Impression: 1. Sciatica Discharge Plan Triage Chief Complaint: Back Other Complaint: Lower Extremity Injury ED Provider: Vikas Christensen Dx/Rx/DC Orders Instructions: Sciatica Exercise, ED Sciatica Prescriptions: New oxycodone-acetaminophen [Percocet] 5-325 mg tablet 1 tab PO Q8H PRN (Reason: pain) 3 Days Qty: 12 0RF ondansetron 4 mg tablet,disintegrating 4 mg PO Q8H PRN PRN (Reason: Nausea) Qty: 14 0RF No Action multivitamin tablet 1 tab PO QAM cholecalciferol (vitamin D3) 1,000 unit capsule 1,000 unit PO ONCE fish oil-dha-epa 1,200-144-216 mg capsule PO ibuprofen 400 mg tablet 400 mg PO BID PRN (Reason: pain) Qty: 60 1RF betamethasone, augmented 0.05 % cream topical prednisone 20 mg tablet PO fexofenadine [Carmina Allergy] 60 mg tablet 60 mg PO BID Qty: 60 0RF oxycodone-acetaminophen [Percocet] 5-325 mg tablet 1 tab PO Q6H PRN (Reason: pain) 5 Days Qty: 20 0RF (DME) blood pressure monitor Kit See Rx Instructions .MEDSUPPLY Qty: 1 0RF Rx Instructions: Check blood pressure daily for hypertension I10 citalopram 10 mg tablet 10 mg PO QDAY Qty: 90 3RF Primary Care Provider: Stephane Anna Referrals: Stephane Anna MD [Primary Care Provider] - Disposition Disposition: Home, Self Care Discharge Date/Time: 10/16/22 21:06
== END 2022-10-16 21:06 | disposition home or self-care (01) ==
PROVIDERS: Emergency Provider Student in an Organized Health Care Education/Training Program; PCP Internal Medicine; Visit Provider Student in an Organized Health Care Education/Training Program
DX: M54.30 Sciatica, unspecified side (principal); I10 Essential (primary) hypertension; Z79.1 Long term (current) use of non-steroidal anti-inflammatories (NSAID); F41.8 Other specified anxiety disorders; Z79.899 Other long term (current) drug therapy
CPT/HCPCS: 99283

== ENCOUNTER → 2023-01-13 | Outpatient (CLI) | payer MEDICARE, OTHER, SELFPAY ==
[2023-01-13 12:44] LABS: Absolute Lymphocyte Count 1.62 X10^3/uL (0.83-4.51); Absolute Neutrophil Count 3.5 X10^3/uL (2.0-7.7); Basophil# 0.04 X10^3/uL; Basophil% 0.7 % (0-1); Hematocrit 39.7 % (37-47); Hemoglobin 12.6 g/dL (12.0-15.0); Lymphocyte # 1.62 X10^3/ul (0.83-4.51); Mean Corp Hgb Conc 31.7 g/dL (32-36); Mean Corpuscular Hgb 31.8 pg (27.0-32.0); Mean Corpuscular Volume 100.3 fL (81-99); Mean Platelet Vol. 9.6 fl (6.2-12.0); Monocyte# 0.45 X10^3/uL; Monocyte% 8.1 % (0-10); NRBC Flagged by Analyzer 0 % (0-5); Neutrophil # 3.46 X10^3/uL (2.7-7.7); Neutrophil % 61.8 % (47-70); Platelet Count 247 K/mm3 (150-450); RBC Distribution Width CV 11.8 % (11.6-14.6); RBC Distribution Width SD 43.1 fl (35.1-43.9); Red Blood Count 3.96 M/mm3 (4.2-5.4); White Blood Count 5.6 K/mm3 (4.4-11.0)
[2023-01-13 13:26] LABS: ALB/GLOB Ratio 1.1 RATIO (0.9-2.4); AST(SGOT) 14 U/L (15-37); Alanine Aminotransfer ALT/SGPT 18 U/L (13-56); Albumin, Serum 3.7 g/dL (3.2-5.0); Alkaline Phosphatase 85 U/L (45-117); Anion Gap 3 (5-15); BUN 11 mg/dL (7-18); BUN/Creat Ratio 14.9 RATIO (10-20); Calcium,Total 9.4 mg/dL (8.5-10.1); Chloride 107 mmol/L (98-107); Cholesterol 218 mg/dL (200); Creatinine, Serum 0.74 mg/dL (0.55-1.02); EST Glomerular Filtration Rate 82 mL/min (>60); Est Glom Filt Rate - Afr Amer 99 mL/min (>60); Globulin 3.4 g/dL (2.2-4.2); Glucose 100 mg/dL (74-106); High Density Lipoprotein 66 mg/dL; Potassium 4.9 mmol/L (3.5-5.1); Protein, Total 7.1 g/dL (6.4-8.2); Sodium Level 140 mmol/L (136-145); Triglycerides 151 mg/dL; Very Low Density Lipoprotein 30 mg/dL (5-40)
[2023-01-13 13:29] LABS: Vitamin D,25 Hydroxy 28.4 ng/mL
== END | disposition home or self-care (01) ==
LOC: BIMLAB 09:40
PROVIDERS: PCP Internal Medicine; Referring Provider Internal Medicine; Visit Provider Internal Medicine
DX: E78.2 Mixed hyperlipidemia (principal); I10 Essential (primary) hypertension; M85.80 Other specified disorders of bone density and structure, unspecified site
CPT/HCPCS: 36415; 80053; 80061; 82306; 85025

== ENCOUNTER → 2023-04-06 | Outpatient (CLI) | payer MEDICARE, OTHER, SELFPAY ==
--- NOTE | 2023-04-06 09:14 | BI_ITS ---
MAMMOGRAPHY - BILATERAL SCREENING REASON FOR EXAM: Female, 72 years old. Routine annual screening examination. PERTINENT HISTORY: Grandmother with breast cancer. Chronic inversion of both nipples. TECHNIQUE: Digital bilateral breast bryanna (3D mammographic acquisition) in the CC and MLO projections. 2-D mediolateral oblique (MLO) and craniocaudad (CC) views of both breasts were obtained. CAD: Full Field Digital Mammography with Computer Added Detection was performed. COMPARISON: Comparison is made with prior study March 31, 2022 and March 27, 2021. FINDINGS: Breast Composition: The breasts are heterogeneously dense, which may obscure small masses. There are no dominant masses or suspicious calcifications. No other significant abnormalities are identified. There has been no significant change since the prior study. BI/SCRN MAMM (CAD)W/BRYANNA BILAT IMPRESSION: Stable bilateral screening mammogram. Yearly follow-up mammogram recommended. (A) ASSESSMENT CATEGORY: BIRADS Category 1: Negative. A letter regarding these results will be sent to the patient by the facility within 30 days. Approximately 10% of breast cancers are not detected by mammography. A normal mammogram should not delay biopsy of a clinically suspicious abnormality. [id number] Electronically Signed: Jim Mccracken MD at 11:07 EDT ,
--- NOTE | 2023-04-06 09:20 | BD_ITS ---
STUDY: DUAL ENERGY X-RAY ABSORPTIOMETRY / DXA REASON FOR EXAM: Female, 72 years old. Post menopausal TECHNIQUE: Bone Mineral Density (BMD) measurements of lumbar spine and bilateral hips were obtained. COMPARISON: Comparison is made with prior study March 27, 2021. FINDINGS: Lumbar Spine (L1-L4): g/cm2 (0.949) / T-score (-0.9) / Z-score (1.5) Findings are suggestive of normal bone density with a low fracture risk. Left Femur Total: g/cm2 (0.885) / T-score (-0.5) / Z-score (1.3) Left Femoral Neck: g/cm2 (0.701) / T-score (-1.3) / Z-score (0.7) Right Femur Total: g/cm2 (0.805) / T-score (-1.1) / Z-score (0.6) Right Femoral Neck: g/cm2 (0.716) / T-score (-1.2) / Z-score (0.8) The T-Scores on the most recent prior examination were: Lumbar Spine (L1-L4): There has been improvement of bone density since the previous examination. Left Femur Total: which represents a worsening of 0.4%. Right Femur Total: which represents an improvement of 3.1%. BD/Dexa Bone Density Study IMPRESSION: The patient is considered osteopenic as outlined below according to World Michael Organization (WHO) criteria with a low fracture risk. There has been improvement of bone density since the previous examination. Reference Information: The T-score is the number of standard deviations above or below the standard which is normal for young adults at their peak bone mineral density. The World Health Organization (WHO) interprets the T-scores as follows: Above -1 Normal bone density Between -1 and -2.5 Osteopenia Equal to / or below -2.5 Osteoporosis As a practical clinical guideline, osteopenia may be graded as follows: Mild -1 through -1.5 Moderate -1.6 through -2.0 Severe -2.1 through -2.4 The Z-score is the number of standard deviations above or below age-matched controls. A Z-score of less than -1.5 would be considered abnormal. References: 1. NIH Osteoporosis and Related Bone Diseases www osteo.org 2. International Society for Clinical Densitometry www iscd.org 3. National Osteoporosis Foundation www nof.org Electronically Signed: Jim Mccracken MD at 8:44 EDT ,
== END | disposition home or self-care (01) ==
LOC: OPBI 09:12
PROVIDERS: PCP Internal Medicine; Referring Provider Internal Medicine; Visit Provider Internal Medicine
DX: Z12.31 Encounter for screening mammogram for malignant neoplasm of breast (principal); Z78.0 Asymptomatic menopausal state; Z80.3 Family history of malignant neoplasm of breast
CPT/HCPCS: 77063; 77067; 77080

== ENCOUNTER → 2024-01-24 | Outpatient (CLI) | payer MEDICARE, OTHER, SELFPAY ==
[2024-01-24 12:17] LABS: Absolute Lymphocyte Count 1.69 X10^3/uL (0.83-4.51); Basophil# 0.03 X10^3/uL; Basophil% 0.6 % (0-1); Hematocrit 40.3 % (37-47); Lymphocyte # 1.69 X10^3/ul (0.83-4.51); Lymphocyte % 33.2 % (19-41); Mean Corp Hgb Conc 32.3 g/dL (32-36); Mean Corpuscular Hgb 31.9 pg (27.0-32.0); Mean Corpuscular Volume 98.8 fL (81-99); Mean Platelet Vol. 9.5 fl (6.2-12.0); Monocyte# 0.38 X10^3/uL; Monocyte% 7.5 % (0-10); NRBC Flagged by Analyzer 0 % (0-5); Neutrophil # 2.98 X10^3/uL (2.7-7.7); Neutrophil % 58.5 % (47-70); Platelet Count 285 K/mm3 (150-450); RBC Distribution Width CV 11.6 % (11.6-14.6); RBC Distribution Width SD 42.2 fl (35.1-43.9); Red Blood Count 4.08 M/mm3 (4.2-5.4); White Blood Count 5.1 K/mm3 (4.4-11.0)
[2024-01-24 12:44] LABS: ALB/GLOB Ratio 1.1 RATIO (0.9-2.4); AST(SGOT) 12 U/L (15-37); Alanine Aminotransfer ALT/SGPT 16 U/L (13-56); Albumin, Serum 3.7 g/dL (3.2-5.0); Alkaline Phosphatase 79 U/L (45-117); Anion Gap 6 (5-15); BUN 12 mg/dL (7-18); BUN/Creat Ratio 15.4 RATIO (10-20); Calcium,Total 9.4 mg/dL (8.5-10.1); Chloride 107 mmol/L (98-107); Cholesterol 241 mg/dL (200); Creatinine, Serum 0.78 mg/dL (0.55-1.02); EST Glomerular Filtration Rate 76 mL/min (>60); Est Glom Filt Rate - Afr Amer 92 mL/min (>60); Globulin 3.3 g/dL (2.2-4.2); Glucose 107 mg/dL (74-106); High Density Lipoprotein 72 mg/dL; Potassium 4.9 mmol/L (3.5-5.1); Sodium Level 141 mmol/L (136-145); Triglycerides 152 mg/dL; Very Low Density Lipoprotein 30 mg/dL (5-40)
== END | disposition home or self-care (01) ==
LOC: BIMLAB 09:16
PROVIDERS: PCP Internal Medicine; Visit Provider Internal Medicine
DX: E78.2 Mixed hyperlipidemia (principal); M85.80 Other specified disorders of bone density and structure, unspecified site
CPT/HCPCS: 36415; 80053; 80061; 82306; 85025

== ENCOUNTER → 2024-04-07 | Outpatient (CLI) | payer MEDICARE, OTHER, SELFPAY ==
--- NOTE | 2024-04-07 09:33 | BI_ITS ---
MAMMOGRAPHY - BILATERAL SCREENING REASON FOR EXAM: Female, 73 years old. Routine annual screening examination. PERTINENT HISTORY: Grandmother with breast cancer. Chronic bilateral nipple inversion. TECHNIQUE: Digital bilateral breast bryanna (3D mammographic acquisition) in the CC and MLO projections. 2-D mediolateral oblique (MLO) and craniocaudad (CC) views of both breasts were obtained. CAD: Full Field Digital Mammography with Computer Added Detection was performed. COMPARISON: Comparison is made with prior study dated April 06, 2023 and March 31, 2022. FINDINGS: Breast Composition: The breasts are heterogeneously dense, which may obscure small masses. There are no dominant masses or suspicious calcifications. No other significant abnormalities are identified. There has been no significant change since the prior study. BI/SCRN MAMM (CAD)W/BRYANNA BILAT IMPRESSION: Stable bilateral screening mammogram. Yearly follow-up mammogram recommended. (A) ASSESSMENT CATEGORY: BIRADS Category 1: Negative. A letter regarding these results will be sent to the patient by the facility within 30 days. Approximately 10% of breast cancers are not detected by mammography. A normal mammogram should not delay biopsy of a clinically suspicious abnormality. [id number] Electronically Signed: Jim Mccracken MD at 10:43 EDT ,
== END | disposition home or self-care (01) ==
LOC: OPBI 09:33
PROVIDERS: PCP Internal Medicine; Referring Provider Internal Medicine; Visit Provider Internal Medicine
DX: Z12.31 Encounter for screening mammogram for malignant neoplasm of breast (principal); Z80.3 Family history of malignant neoplasm of breast
CPT/HCPCS: 77063; 77067

== ENCOUNTER → 2024-09-25 | Outpatient (CLI) | payer MEDICARE, OTHER, SELFPAY ==
[2024-09-29 20:08] LABS: HPV APTIMA, High Risk Positive (Negative); HPV Genotype 16, Aptima Negative (Negative); HPV Genotype 18,45 Aptima Negative (Negative)
== END | disposition home or self-care (01) ==
LOC: LABSPEC 11:42
PROVIDERS: PCP Internal Medicine; Referring Provider Obstetrics & Gynecology; Visit Provider Obstetrics & Gynecology
DX: Z12.4 Encounter for screening for malignant neoplasm of cervix (principal)
CPT/HCPCS: 87624; 88175; G0145

== ENCOUNTER → 2024-11-10 | Outpatient (CLI) | payer MEDICARE, OTHER, SELFPAY ==
--- NOTE | 2024-11-10 13:21 | US_ITS ---
PROCEDURE: PELVIC (NON ) ([facility]), 11/10/2024 REASON FOR EXAM: ENLARGED UTERUS TECHNIQUE: Grayscale and color doppler transabdominal pelvic ultrasound was performed. COMPARISON: None FINDINGS: Uterus: Suboptimally visualized by transabdominal only technique. 6.4 x 4.1 x 1.9 cm, Anteverted. Heterogeneous myometrium. Endometrium: 5 mm, unremarkable. Trace endometrial fluid. Cervix: Unremarkable. Right ovary: Suboptimally visualized by transabdominal only technique. 2.5 x 1.3 x 1.8 cm (estimated volume 1.2 mL), grossly unremarkable transabdominal appearance. Left ovary: Not visualized, likely due to postmenopausal small postmenopausal size, positioning, and/or shadowing bowel gas. Free fluid: None visualized. Other: Pessary is noted. Estimated bladder volume 138 mL. US/Pelvic (Non ) IMPRESSION: 1. No acute transabdominal findings noting that the LEFT ovary was not identifi ed. 2. Endometrial thickness would be considered borderline abnormally increased f or a postmenopausal female in the setting of abnormal bleeding. In the absence of abnormal bleeding, this would be consider ed high-normal. Additionally, trace endometrial fluid is present, probably unexpected in a postmenopausal female. Correlate wi th patient history and follow-up as indicated. 3. Mildly heterogeneous myometrium is a nonspecific finding which could be seen in the setting of adenomyosis. 4. Additional description as above. Reading Location: [id number]
== END | disposition home or self-care (01) ==
LOC: US 13:18
PROVIDERS: PCP Internal Medicine; Referring Provider Obstetrics & Gynecology; Visit Provider Obstetrics & Gynecology
DX: N81.2 Incomplete uterovaginal prolapse (principal)
CPT/HCPCS: 76856

== ENCOUNTER → 2024-11-17 | Outpatient (CLI) | payer MEDICARE, OTHER, SELFPAY | END | disposition home or self-care (01) | LOC: LABSPEC 16:24 | PROVIDERS: PCP Internal Medicine; Referring Provider Obstetrics & Gynecology; Visit Provider Obstetrics & Gynecology | DX: N89.8 Other specified noninflammatory disorders of vagina (principal) | CPT/HCPCS: 87070; 87077; 87205 ==

== ENCOUNTER → 2025-01-25 | Outpatient (CLI) | payer MEDICARE, OTHER, SELFPAY ==
[2025-01-25 10:19] LABS: Hematocrit 39.4 % (37-47); Hemoglobin 12.8 g/dL (12.0-15.0); Immature Granulocytes Count 0.010 X10^3/uL (0.0-0.0); Mean Corp Hgb Conc 32.5 g/dL (32-36); Mean Corpuscular Volume 98.3 fL (81-99); Mean Platelet Vol. 9.3 fl (6.2-12.0); NRBC Flagged by Analyzer 0 % (0-5); Platelet Count 254 K/mm3 (150-450); RBC Distribution Width CV 11.7 % (11.6-14.6); RBC Distribution Width SD 42.3 fl (35.1-43.9); Red Blood Count 4.01 M/mm3 (4.2-5.4); White Blood Count 5.7 K/mm3 (4.4-11.0)
[2025-01-25 11:08] LABS: AST(SGOT) 17 U/L (<=31); Alanine Aminotransfer ALT/SGPT 12 U/L (<=34); Albumin, Serum 4.3 g/dL (3.4-4.8); Alkaline Phosphatase 78 U/L (35-104); Anion Gap 10 (5-15); BUN 14 mg/dL (4-19); BUN/Creat Ratio 19.2 RATIO (10-20); Calcium,Total 9.3 mg/dL (7.6-11.0); Carbon Dioxide 25.5 mmol/L (21.0-32.0); Chloride 105 mmol/L (98-108); Cholesterol 222 mg/dL (<=200); Globulin 2.5 g/dL (2.2-4.2); Glucose 93 mg/dL (70-99); Low Density Lipoprotein Calc. 131 mg/dL; Potassium 4.4 mmol/L (3.3-5.1); Triglycerides 102 mg/dL; Very Low Density Lipoprotein 20 mg/dL (5-40); Vitamin D,25 Hydroxy 30.1 ng/mL (30-100); cholesterol:hdl ratio screen 3.13
== END | disposition home or self-care (01) ==
LOC: MTLAB 07:51
PROVIDERS: PCP Internal Medicine; Referring Provider Internal Medicine; Visit Provider Internal Medicine
DX: E78.5 Hyperlipidemia, unspecified (principal); M85.80 Other specified disorders of bone density and structure, unspecified site; I10 Essential (primary) hypertension
CPT/HCPCS: 36415; 80053; 80061; 82306; 85025

== ENCOUNTER → 2025-02-06 | Outpatient (CLI) | payer MEDICARE, OTHER, SELFPAY ==
--- NOTE | 2025-02-06 08:15 | RAD_ITS ---
EXAM: XR Right Hip With Pelvis When Performed, 2 or 3 Views CLINICAL INDICATION: RIGHT HIP PAIN TECHNIQUE: Two or three views of the right hip with pelvis when performed. COMPARISON: No relevant prior studies available. FINDINGS: BONES/JOINTS: Unremarkable. No dislocation. No acute fracture. SOFT TISSUES: Unremarkable. RAD/HIP, UNI W/ Pelvis 2-3 Views IMPRESSION: No acute fracture. Reading Location: [facility]
--- NOTE | 2025-02-06 08:15 | RAD_ITS ---
EXAM: XR Lumbosacral Spine, 4 or 5 Views CLINICAL INDICATION: CHRONIC BACK PAIN TECHNIQUE: Frontal, lateral and bilateral oblique views of the lumbar spine. COMPARISON: No relevant prior studies available. FINDINGS: VERTEBRAE: Mild dextroconvex curvature of the lumbar spine centered around L2. Grade 1 retrolisthesis of L2 over L3 and L3 over L4. Mild endplate degenerative changes of L1 to L5. No acute fracture. SACRUM/COCCYX: Unremarkable as visualized. No acute fracture. DISC SPACES: No acute findings. No significant narrowing. SOFT TISSUES: Unremarkable. RAD/L/S Spine Min 4 Views IMPRESSION: Grade 1 retrolisthesis of L2 over L3 and L3 over L4. Reading Location: [facility]
--- NOTE | 2025-02-06 08:15 | RAD_ITS ---
EXAM: XR Right Hip With Pelvis When Performed, 2 or 3 Views CLINICAL INDICATION: RIGHT HIP PAIN TECHNIQUE: Two or three views of the right hip with pelvis when performed. COMPARISON: No relevant prior studies available. FINDINGS: BONES/JOINTS: Unremarkable. No dislocation. No acute fracture. SOFT TISSUES: Unremarkable. RAD/HIP, UNI W/ Pelvis 2-3 Views IMPRESSION: No acute fracture. Reading Location[facility]
--- NOTE | 2025-02-06 08:15 | RAD_ITS ---
EXAM: XR Lumbosacral Spine, 4 or 5 Views CLINICAL INDICATION: CHRONIC BACK PAIN TECHNIQUE: Frontal, lateral and bilateral oblique views of the lumbar spine. COMPARISON: No relevant prior studies available. FINDINGS: VERTEBRAE: Mild dextroconvex curvature of the lumbar spine centered around L2. Grade 1 retrolisthesis of L2 over L3 and L3 over L4. Mild endplate degenerative changes of L1 to L5. No acute fracture. SACRUM/COCCYX: Unremarkable as visualized. No acute fracture. DISC SPACES: No acute findings. No significant narrowing. SOFT TISSUES: Unremarkable. RAD/L/S Spine Min 4 Views IMPRESSION: Grade 1 retrolisthesis of L2 over L3 and L3 over L4. Reading Location: [facility]
== END | disposition home or self-care (01) ==
LOC: MTRAD 08:15
PROVIDERS: PCP Internal Medicine; Referring Provider Internal Medicine; Visit Provider Internal Medicine
DX: M25.551 Pain in right hip (principal); M54.50 Low back pain, unspecified; G89.29 Other chronic pain
CPT/HCPCS: 72110; 73502

== ENCOUNTER → 2025-04-10 | Outpatient (CLI) | payer MEDICARE, OTHER, SELFPAY ==
--- NOTE | 2025-04-10 07:51 | BI_ITS ---
EXAM: SCRN MAMM (CAD)W/BRYANNA BILAT DATE: 04/10/2025 CLINICAL HISTORY: F, Age 74 y/o , BREAST CANCER SCREENING TECHNIQUE: Procedure Code: [id number] Modality: MG Procedure: SCRN MAMM (CAD)W/BRYANNA BILAT COMPARISON: Prior exam(s) were compared FINDINGS: TISSUE DENSITY: The breasts are heterogeneously dense, which may obscure small masses. Bilateral Breast Mammographic Findings: No suspicious masses, calcifications or other abnormalities are identified. BI/SCRN MAMM (CAD)W/BRYANNA BILAT IMPRESSION: No mammographic evidence of malignancy. OVERALL FINAL ASSESSMENT BI-RADS 1: NEGATIVE. RECOMMENDATION: Routine annual follow-up in 1 Year A letter with findings and recommendations will be mailed to the patient. Reading Location: [id number]
--- NOTE | 2025-04-10 07:58 | BD_ITS ---
PROCEDURE: DEXA BONE DENSITY STUDY 04/10/2025 REASON FOR EXAM: POST MENOPAUSAL F, age 74 y/o . Postmenopausal. TECHNIQUE: Procedure Code: BDDBD Modality: DX Procedure: DEXA BONE DENSITY STUDY COMPARISON: Prior study dated April 06, 2023. FINDINGS: BMD and T-SCORES Lumbar spine: 0.936 g/cm2, T-score -1.1 Levels: L1 through L4 Change from prior: Loss of 0.1%. Left femoral neck: 0.705 g/cm2, T-score -1.3 Femoral neck comparison data not recommended for monitoring change. Left total hip: 0.827 g/cm2, T-score -0.9 Change from prior: Loss of 6.5%. Right femoral neck: 0.716 g/cm2, T-score -1.2 Femoral neck comparison data not recommended for monitoring change. Right total hip: 0.810 g/cm2, T-score -1.1 Change from prior: Improvement of 0.6%. The World Health Organization has defined the following categories based on bone density: Normal bone density: T-score equal to or greater than -1.0 Osteopenia: T-score between -1.0 and -2.5 Osteoporosis: T-score equal to or less than -2.5 FRAX (or Comparable) Fracture Risk Assessment: 10 Year Probability of Fracture: Major Osteoporotic Fracture: 16% Hip Fracture: 2.9% (Note: FRAX is not to be reported in setting of normal range bone density, osteoporosis on DEXA, known history of osteoporosis, prior osteoporotic hip or vertebral fracture, or for any patient undergoing pharmacological treatment for bone loss.) The National Osteoporosis Foundation (NOF) recommends pharmacological treatment for patients with a FRAX 10-year risk of 3% or higher for a hip fracture, or 20% or higher for a major osteoporotic fracture, to prevent osteoporosis and reduce fracture risk. The patient does meet the pharmacological treatment recommendations for prevention of osteoporosis. BD/Dexa Bone Density Study IMPRESSION: OSTEOPENIA. Recommend follow-up as clinically warranted. Reading Location: [place] [id number]
--- OUTSIDE RECORDS SUMMARY | 2025-04-10 08:14 | XMS RPT_ITS | CCD ---
Author Organization [facility]iniSyn[facility] Care Team Providers Care Nuclear Plant Equipment Operator Name Role Phone Stephane Anna MD Unavailable [phone] Dr. Stephane Anna Primary Care Provider [phone] Dr. Stephane Anna Referring Provider [phone] JEANNETTE Orta Attending Provider [phone] Dr. Stephane Anna Attending Provider [phone] Dr. Stephane Anna Primary Care Provider [phone] Dr. Stephane Anna Attending Provider [phone] Dr. Stephane Anna Referring Provider [phone] Shoshana OCHOA, Dr. Calderón Primary Care Provider Dr. Stephane Anna MD Referring Provider [phone] Dr. Jennifer Mobley DO Attending Provider Dr. Jennifer Mobley DO Referring Provider Dr. Stephane Anna MD Primary Care Provider Dr. Jennifer Mobley DO Attending Provider Dr. Jennifer Mobley DO Referring Provider Dr. Stephane Anna MD Referring Provider [phone] Dr. Stephane Anna MD Attending Provider [phone] Stephane Anna Referring Unavailable Stephane Anna Primary Care Unavailable Jennifer Mobley Attending Unavailabl e Oleghe, Efewongbe Primary Care Unavailable Oleghe, Efewongbe Referring Unavailable Vande Jennifer Smith Attending Unavailabl e Oleghe, Efewongbe Referring Unavailable Oleghe, Efewongbe Primary Care Unavailable Vande Velleonor, Attending Unavailabl e Oleghe, Efewongbe Attending Unavailable Oleghe, Efewongbe Referring Unavailable Oleghe, Efewongbe Primary Care Unavailable Oleghe, Efewongbe Primary Care Unavailable Jennifer Mobley Referring Unavailabl e Vande Velde, Attending Unavailabl e Oleghe, Efewongbe Referring Unavailable Oleghe, Efewongbe Attending Unavailable Oleghe, Efewongbe Primary Care Unavailable Oleghe, Efewongbe Attending Unavailable Oleghe, Efewongbe Referring Unavailable Oleghe, Efewongbe Primary Care Unavailable Oleghe, Efewongbe Referring Unavailable Oleghe, Efewongbe Attending Unavailable Oleghe, Efewongbe Primary Care Unavailable Oleghe, Efewongbe Primary Care Unavailable Niranjan Smith, Attending Unavailabl e Vande Velde, Referring Unavailabl e Oleghe, Efewongbe Primary Care Unavailable Niranjan Smith, Attending Unavailabl e Vande Velde, Referring Unavailabl e Allergies Allergy Classification Reported Allergen(s) Allergy Type Date of Onset Reaction(s) Facility (4 sources) naproxen drug allergy 7 [facility] Work Phone: (4 sources) [facility] drug allergy 7 [facility] Work Phone: (12 sources) Erythromycin Drug Allergy 2 Unknown [facility] (12 sources) Loratadine Drug Allergy 2 Unknown, [facility] (12 sources) Naproxen Drug Allergy 2 [facility] (9 sources) Pseudoephedrine Drug Allergy 3 [facility] (1 source) Erythromycin Drug Allergy 5 [facility] Repository (1 source) Loratadine Drug Allergy 5 [facility] Repository (1 source) Naproxen Drug Allergy 5 [facility] Repository (1 source) Pseudoephedrine Drug Allergy 5 [facility] Repository Medications Current Medications Medication Drug Class(es) Dates Sig (Normalized) Sig (Original) Blood Pressure Monitor (6 sources) Start: 09-24-2020 Blood Pressure Monitor Active 0 .MEDSUPPLY September 24, 2020 12:00am Check blood pressure daily for hypertension I10 Start: 09-24-2020 Blood Pressure Monitor Active 0 .MEDSUPPLY September 24, 2020 1:00am Check blood pressure daily for hypertension I10 estradiol 0.1 mg/ml vaginal cream (6 sources) Estrogen Start: 06-19-2024 Estradiol 0.01 % (0.1 mg/gram) cream Active 0 VAGINAL DAILY 42.5 0 June 19, 2024 1:00am pea sized amount using finger tip method every night x 2 weeks then 2-3 times a week there after. Multivitamin preparation (6 sources) Start: 07-16-2017 take 1 tablet by mouth once daily in the morning Multivitamin Active 1 TABLET PO EVERY MORNING July 16, 2017 12:00am Start: 07-16-2017 take 1 tablet by alonso th once daily in the morning Multivitamin Active 1 TABLET PO EVERY MORNING July 16, 2017 1:00am Multivitamin tablet (6 sources) Start: 07-16-2017 Multivitamin t ablet Active 1 {tbl} PO EVERY MORNING July 16, 2017 1:00am penicillin v potassium 250 mg oral tablet (1 source) Start: 02-20-2025 take 1 tablet by mouth twice daily Penicillin V Potassium 250 mg tablet Active 250 mg PO TWICE A DAY 14 7 0 February 20, 2025 12:00am February 26, 2025 12:00am Completed/Discontinued Medications Medication Drug Class(es) Dates Sig (Normalized) Sig (Original) acetaminophen 325 mg / oxyCODONE hydrochloride 5 mg oral tablet (19 sources) Opioid Agonist Start: 10-16-2022 End: 01-13-2023 Oxycodone-Acetamino phen (Percocet) 5-325 mg tablet Discontinued 1 {tbl} PO Q8H as needed for pain 12 3 0 October 16, 2022 January 13, 2023 8:58am Sciatica Sciatica, unspecified side Start: 07-05-2022 End: 01-13-2023 take 1 tablet by mouth every six hours as needed for pain Oxycodone-Acetaminophen (Percocet) 5-325 mg tablet Discontinued 1 {tbl} PO EVERY 6 HOURS as needed for pain 20 5 0 July 05, 2022 January 13, 2023 8:58am Fracture of rib of right side Fracture of one rib, right side, initial encounter for closed fracture augmented betamethasone 0.5 mg/ml topical cream (12 sources) Corticosteroid Start: 01-12-2022 End: 01-13-2023 Betamethasone, Augmented 0.05 % cream Discontinued NMA TOPICAL January 12, 2022 12:00am January 13, 2023 8:56am Start: 01-12-2022 End: 01-13-2023 Betamethasone, Augmented Dis continued APPLIC TOPICAL January 12, 2022 12:00am January 13, 2023 8:56am Blood Pressure Monitor kit (6 sources) Start: 09-24-2020 End: 09-25-2024 Blood Pressure Monitor kit Discontinued 0 .MEDSUPPLY 1 0 September 24, 2020 1:00am September 25, 2024 9:29am Essential (primary) hypertension Check blood pressure daily for hypertension I10 Start: 09-24-2020 End: 09-25-2024 Blood Pressure Monitor kit D iscontinued 0 .MEDSUPPLY 1 September 24, 2020 1:00am September 25, 2024 9:29am Check blood pressure daily for hypertension I10 cholecalciferol 0.01 mg oral capsule (20 sources) Vitamin D Start: 01-24-2024 End: 09-25-2024 take 1 capsule by mouth once daily Cholecalciferol (Vitamin D3) 10 mcg (400 unit) capsule Discontinued 10 ug PO DAILY January 24, 2024 12:00am September 25, 2024 9:29am Start: 07-16-2017 End: 01-13-2023 take 1 capsule by mouth once Cholecalciferol (Vitamin D3) 1,000 unit capsule Discontinued 1000 U PO ONCE July 16, 2017 1:00am January 13, 2023 8:57am Start: 04-20-2017 take 1 tablet by alonso once daily VITAMIN D3 TABS One tablet by mouth daily CHOLECALCIFEROL TABS [id number] Stephane Anna MD Start: 04-20-2017 take 1 tablet by alonso th once daily VITAMIN D3 TABS One tablet by mouth daily CHOLECALCIFEROL TABS [id number] Stephane Anna MD citalopram 10 mg oral tablet (20 sources) Serotonin Reuptake Inhibitor Start: 07-16-2017 End: 12-19-2024 take 1 tablet by mouth once daily Citalopram 10 mg tablet Discontinued 10 mg PO daily 90 3 October 25, 2023 12:56pm December 19, 2024 10:36am Start: 04-20-2017 take 1 tablet by alonso th once daily CITALOPRAM HYDROBROMIDE 10 MG TABS One tablet by mouth daily CITALOPRAM HYDROBROMIDE [id number] Stephane Anna MD fexofenadine hydrochloride 60 mg oral tablet (12 sources) Histamine-1 Receptor Antagonist Start: 12-29-2021 End: 01-24-2024 take 1 tablet by mouth twice daily Fexofenadine (Carmina Allergy) 60 mg tablet Discontinued 60 mg PO TWICE A DAY 60 0 December 29, 2021 12:00am January 24, 2024 8:57am fish oil (3 sources) Start: 04-20-2017 take 1 tablet by mouth once daily [facility] FISH OIL 1200 MG CAPS One tablet by mouth daily OMEGA-3 FATTY ACIDS [id number] Stephane Anna MD Start: 04-20-2017 take 1 tablet by alonso th once daily [facility] FISH OIL 1200 MG CAPS One tablet by mouth daily OMEGA-3 FATTY ACIDS [id number] Stephane Anna MD Fish Oil-Dha-Epa (6 sources) Start: 07-16-2017 End: 01-13-2023 Fish Oil-Dha-Epa Discontinue d CAP PO July 16, 2017 1:00am January 13, 2023 8:57am Start: 07-16-2017 Fish Oil-Dha-E pa Active CAP PO July 16, 2017 12:00am Start: 07-16-2017 Fish Oil-Dha-E pa Active CAP PO July 16, 2017 1:00am Fish Oil-Dha-Epa 1,200-144-2 16 mg capsule (6 sources) Start: 07-16-2017 End: 01-13-2023 Fish Oil-Dha-Epa 1,200-144-2 16 mg capsule Discontinued NMA PO 0 July 16, 2017 1:00am January 13, 2023 8:57am Start: 07-16-2017 End: 01-13-2023 Fish Oil-Dha-Epa 1,200-144-2 16 mg capsule Discontinued NMA PO July 16, 2017 1:00am January 13, 2023 8:57am ibuprofen 400 mg oral tablet (20 sources) Nonsteroidal Anti-inflammatory Drug Start: 07-10-2024 End: 09-25-2024 take 1 tablet by mouth twice daily as needed for pain Ibuprofen 400 mg tablet Discontinued 400 mg PO TWICE A DAY as needed for pain 60 July 10, 2024 6:05pm September 25, 2024 9:29am Start: 09-23-2020 End: 01-24-2024 take 1 tablet by mouth twice daily as needed for pain Ibuprofen 400 mg tablet Discontinued 400 mg PO TWICE A DAY as needed for pain 60 1 January 13, 2023 9:16am January 24, 2024 8:57am Magnesium (6 sources) Start: 01-24-2024 End: 09-25-2024 take 1 tablet by mouth once daily Magnesium 200 mg tablet Discontinued 200 mg PO DAILY January 24, 2024 12:00am September 25, 2024 9:29am methylPREDNISolone 4 mg oral tablet (12 sources) Corticosteroid Start: 12-29-2021 End: 01-12-2022 take 1 tablet by mouth once daily Methylprednisolone (Medrol (Deandre)) 4 mg tablets,dose pack Discontinued 4 mg PO DAILY 21 December 29, 2021 12:00am January 12, 2022 1:13pm MULTIPLE VITAMINS-MINERALS (2 sources) Start: 04-20-2017 take 1 tablet by mouth once daily DAILY MULTIVITAMIN CAPS One tablet by mouth daily MULTIPLE VITAMINS-MINERALS [id number] Stephane Anna MD MULTIPLE VITAMINS-MINERALS (2 sources) Start: 04-20-2017 take 1 tablet by mouth once daily DAILY MULTIVITAMIN CAPS One tablet by mouth daily MULTIPLE VITAMINS-MINERALS [id number] Stephane Anna MD Start: 04-20-2017 take 1 tablet by alonso th once daily DAILY MULTIVITAMIN CAPS One tablet by mouth daily MULTIPLE VITAMINS-MINERALS [id number] Stephane Anna MD OMEGA-3 FATTY ACIDS (1 source) Start: 04-20-2017 take 1 tablet by mouth once daily [facility] FISH OIL 1200 MG CAPS One tablet by mouth daily OMEGA-3 FATTY ACIDS [id number] Stephane Anna MD ondansetron 4 mg disintegrating oral tablet (9 sources) Serotonin-3 Receptor Antagonist Start: 10-16-2022 End: 01-13-2023 take 1 tablet by mouth every eight hours as needed for nausea Ondansetron 4 mg tablet,disintegrat ing Discontinued 4 mg PO EVERY 8 HOURS NEEDED as needed for Nausea 14 0 October 16, 2022 12:00am January 13, 2023 8:57am predniSONE 20 mg oral tablet (20 sources) Start: 01-12-2022 End: 01-13-2023 Prednisone 20 mg tablet Discontinued mg PO January 12, 2022 12:00am January 13, 2023 8:58am Start: 01-12-2022 End: 01-13-2023 Prednisone Discontinued MG P O January 12, 2022 12:00am January 13, 2023 8:58am Start: 06-13-2018 End: 07-05-2018 Prednisone 10 mg tablet Disc ontinued 0 PO daily 30 0 June 13, 2018 1:00am July 05, 2018 3:35pm 4 tabs for 3 days, then 3 tabs for 3 days, then 2 tabs for 3 days, then 1 tab for 3 days PO QDAY; administer with food or milk Problems Active Problems Problem Classification Problem Date Documented Da te Episodic/Chronic Acute and unspecified renal failure (12 sources) Injury of kidney; Translations: [Acute kidney failure, unspecified] 01-12-2022 Episodic Allergic reactions (20 sources) Contact dermatitis due to plants; Translations: [Unspecified contact dermatitis due to plants, except food] Episodic Anxiety disorders (4 sources) Anxiety disorder, unspecified; Translations: [Anxiety state, unspecified] Chronic Disorders of lipid metabolism (20 sources) Hyperlipidemia; Translations: [Hyperlipidemia, unspecified] Onset: 04-20-2017 04-20-2017 Chronic E Codes: Fall (10 sources) Fall from steps ; Translations: [Fall (on) (from) unspecified stairs and steps, initial encounter] 07-13-2022 Episodic Essential hypertension (20 sources) Hypertensive disorder; Translations: [Essential (primary) hypertension] Onset: 01-24-2025 Chronic Immunizations and screening for infectious disease (12 sources) Contact with and (suspected) exposure to other viral communicable diseases; Translations: [Contact with or suspected exposure to other viral communicable disease] 03-07-2020 Episodic Menopausal disorders (6 sources) Atrophy of vagina; Translations: [Postmenopausal atrophic vaginitis] 02-23-2024 Chronic Mood disorders (19 sources) Mixed anxiety and depressive disorder; Translations: [Anxiety disorder, unspecified] Onset: 04-20-2017 04-20-2017 Chronic Other bone disease and musculoskeletal deformities (12 sources) Osteopenia; Translations: [Other specified disorders of bone density and structure, unspecified site] 07-05-2018 Episodic Other bone disease and musculoskeletal deformities (1 source) Other specified disorders of bone density and structure, unspecified site; Translations: [Other specified disorders of bone density and structure, unspecified site] Onset: 01-24-2025 Episodic Other circulatory disease (12 sources) Pulmonary congestion ; Translations: [Other specified symptoms and signs involving the circulatory and respiratory systems] 03-07-2020 Episodic Other fractures (4 sources) Fracture of rib; Translations: [Fracture of one rib, right side, initial encounter for closed fracture] 07-13-2022 Episodic Other fractures (6 sources) Fracture of right rib; Translations: [Fracture of one rib, right side, initial encounter for closed fracture] 07-13-2022 Episodic Other nervous system disorders (8 sources) Piriformis syndrome; Translations: [Lesion of sciatic nerve, unspecified lower limb] 01-13-2023 Chronic Other nervous system disorders (2 sources) Lesion of sciatic nerve, unspecified lower limb; Translations: [Lesion of sciatic nerve] 01-13-2023 Chronic Other nervous system disorders (1 source) Other chronic pain; Translations: [Other chronic pain] Onset: 01-24-2025 Chronic Other non-traumatic joint disorders (9 sources) Hip pain; Translations: [Pain in right hip] 01-24-2024 Episodic Other non-traumatic joint disorders (1 source) Pain in right hip; Translations: [Pain in right hip] Onset: 02-12-2025 Episodic Other screening for suspected conditions (not mental disorders or infectious disease) (2 sources) Encounter for screening mammogram for malignant neoplasm of breast; Translations: [Encounter for screening for malignant neoplasm of cervix] Onset: 10-06-2024 Episodic Other skin disorders (12 sources) Eruption; Translations: [Rash and other nonspecific skin eruption] 12-27-2021 Episodic Other upper respiratory disease (12 sources) Seasonal allergic rhinitis; Translations: [Other seasonal allergic rhinitis] 07-16-2017 Chronic Prolapse of female genital organs (20 sources) Cystocele co-occurrent with incomplete uterovaginal prolapse; Translations: [Incomplete uterovaginal prolapse] Onset: 02-20-2025 02-23-2024 Chronic Residual codes; unclassified (2 sources) Asymptomatic menopausal state; Translations: [Asymptomatic menopausal state] Onset: 01-24-2025 Episodic Spondylosis; intervertebral disc disorders; other back problems (12 sources) Inflammation of sacroiliac joint; Translations: [Sacroiliitis, not elsewhere classified] 09-23-2020 Chronic Spondylosis; intervertebral disc disorders; other back problems (20 sources) Chronic back pain ; Translations: [Dorsalgia, unspecified] 10-16-2022 Episodic Unclassified (2 sources) Screening mammography ; Translations: [Encounter for screening mammogram for malignant neoplasm of breast] Onset: 04-20-2017 04-20-2017 Unclassified (2 sources) Screening for malignant neoplasm of colon ; Translations: [Encounter for screening for malignant neoplasm of colon] Onset: 04-20-2017 04-20-2017 Unclassified (1 source) Low back pain, unspecified; Translations: [Low back pain, unspecified] Onset: 01-24-2025 Past or Other Problems Problem Classification Problem Date Documented Date Episodic/Chronic Other female genital disorders (1 source) Other specified noninflammatory disorders of vagina; Translations: [Other specified noninflammatory disorders of vagina] Onset: 11-21-2024 Episodic Other female genital disorders (1 source) Hypertrophy of uterus; Translations: [Hypertrophy of uterus] Onset: 11-15-2024 Episodic Results Test Name Value Interpretation Reference Range Facility Slide Attendant Office Visit Reporton 02-20-2025 Slide Attendant Office Visit Report [facility] [address], [address] [place] [address] OFFICE VISIT Date of Service: 02/20/25 MR#: [id number] Acct: [id number] Name: FLORES MARSHALL Rep #: [id number] : 1950 Provider: Dr. Jennifer Valenzuela DO Age/Sex: 74/F Location: [facility] Status: Signed Intake Vital Signs 11/17/24 15:20 01/24/25 08:52 02/20/25 13:51 02/20/25 13:51 Height 5 ft 2 in 5 ft 2 in 5 ft 2 in 5 ft 2 in Weight: 124 lb 123 lb 6 oz BMI 22.6 22.5 BP 132/82 H 149/88 H Blood Pressure Location Lt brachial Position Sitting Respiration 16 Pulse 94 Pulse Source Monitor Temp 97.8 F Pulse Oximetry (%) 96 Oxygen Delivery Method room air Intake Visit Reasons: PESSARY CHECK Chief Complaint: pessary maintenance Metal Painter Required: No Is patient in pain?: No Allergies erythromycin base Allergy (Unknown, Verified 02/20/25 13:51) Unknown loratadine (From Claritin-D) Allergy (Verified 02/20/25 13:51) Rash naproxen (From Aleve) Allergy (Verified 02/20/25 13:51) Rash pseudoephedrine (From Claritin-D) Allergy (Verified 02/20/25 13:51) Rash Medications ???Medication ???Instructions ???Recorded ???Confirmed ???Type multivitamin 1 tab PO QAM 07/16/17 02/20/25 His tory estradiol 0.01% (0.1 mg/gram) See Rx Instructions vaginal DAILY 06/19/24 02/20/25 Rx vaginal cream #42.5 grams citalopram 10 mg tablet 10 mg PO QDAY #90 tabs 12/19/24 Rx penicillin V potassium 250 mg 250 mg PO BID 7 days #14 tabs 01/2402/20/25 Rx tablet Is last menstrual period known: No Post menopausal: Yes Patient : No : No PFSH Medical History Right hip pain Pelvic prolapse Piriformis syndrome COVID History of fractured rib Acute kidney injury Health care maintenance Poison gisela dermatitis Chronic back pain Routine health maintenance Hypertension Anxiety and depression Seasonal allergies Hyperlipidemia Surgical History H/O bilateral cataract extraction History of tonsillectomy Family History Father Heart disease developed in his s Cancer skin CA in his s Mother Heart disease developed in her s Social History adopted: No household members: spouse number of children: 5 current occupational status: retired pets and animals: No sexually active: No Smoking Status: Never smoker alcohol intake: never substance use type: does not use caffeine: Yes (1) Type: coffee what type of physical activity do you participate in: walking and yoga frequency: daily duration: 15-30 minutes/day seatbelt use: always do you feel safe at home: Yes additional social history: Kayleen - retired HPI PESSARY CHECK Details: FLORES MARSHALL is a 74 year old who presents for pessary cleaning. She has been experiencing yellow discharge still and now it has an odor. The last time she was here she tested positive for group G strep, a normal ricky. ROS Const ROS Unobtainable: All systems reviewed are unremarkable except as noted in H Resp Resp: Reports system reviewed and no additional complaints, except as documented; Denies cough GI GI: Reports as per HPI Psych Psych: Reports system reviewed and no additional complaints, except as documented Exam Const General: cooperative, healthy appearing, comfortable and no acute distress Resp Effort Inspection: normal respiratory effort External Female Exam: normal appearance of the urethra Urethra: normal appearance of the urethra Speculum Exam - Vagina: normal appearance of the vagina Other: pessary removed and cleansed with warm water and soap. The vaginal canal was cleansed with betadine. no ulcerations were noted. Enterocele noted. The pessary was coated in trimosan ointment and replaced without difficulty. Skin General: no rashes or lesions noted Psych Appearance: grossly normal Speech and Movement: speech and movement normal Coding Level of Care Code Off vis,est,level 3 Diagnoses Pelvic prolapse N81.9 Assessment and Plan Assessment and Plan (1) Pelvic prolapse: Status: Chronic Plan: doing well with pessary. treating the group G strep with pcn as she is now symptomatic with an odor and more discharge. RTO in 3 months Orders: Orders Pessary Check Today N81.2 - Incomplete uterovaginal prolapse Medications: New penicillin V potassium 250 mg PO BID 14 tabs 0RF 7 days 02/20/25 1411 Date [facility] Signature: Date ____ (more content not included)... Normal [facility] HIP, UNI W/ Pelvis 2-3 Views on 02-06-2025 HIP, UNI W/ Pelvis 2-3 Views [facility] Imaging Services [address] [place] [address] [id number] HIP, UNI W/ Pelvis 2-3 Views MR#: [id number] Acct: [id number] Name: FLORES MARSHALL Rep #: [id number] : 1950 F 74 From: Carlos Coles MD PCP: Dr. Stephane Anna MD Status: REG CLI Study: HIP, UNI W/ Pelvis 2-3 Views Date of Exam: Exam# [id number] Ordering Dr: Stephane Anna MD EXAM: XR Right Hip With Pelvis When Performed, 2 or 3 Views CLINICAL INDICATION: RIGHT HIP PAIN TECHNIQUE: Two or three views of the right hip with pelvis when performed. COMPARISON: No relevant prior studies available. FINDINGS: BONES/JOINTS: Unremarkable. No dislocation. No acute fracture. SOFT TISSUES: Unremarkable. RAD/HIP, UNI W/ Pelvis 2-3 Views IMPRESSION: No acute fracture. [facility] CC: Dr. Stephane Anna MD Associate Sales Manager: Signed Normal [facility] L/S Spine Min 4 Viewson 01-23 L/S Spine Min 4 Views [facility] [address] [place] [address] L/S Spine Min 4 Views MR#: [id number] Acct: [id number] Name: FLORES MARSHALL Rep #: [id number] : 1950 F 74 From: Carlos Coles MD PCP: Dr. Stephane Anna MD Status: REG CLI Study: L/S Spine Min 4 Views Date of Exam: 02/06/25 Exam# [id number] Ordering Dr: Stephane Anna MD EXAM: XR Lumbosacral Spine, 4 or 5 Views CLINICAL INDICATION: CHRONIC BACK PAIN TECHNIQUE: Frontal, lateral and bilateral oblique views of the lumbar spine. COMPARISON: No relevant prior studies available. FINDINGS: VERTEBRAE: Mild dextroconvex curvature of the lumbar spine centered around L2. Grade 1 retrolisthesis of L2 over L3 and L3 over L4. Mild endplate degenerative changes of L1 to L5. No acute fracture. SACRUM/COCCYX: Unremarkable as visualized. No acute fracture. DISC SPACES: No acute findings. No significant narrowing. SOFT TISSUES: Unremarkable. RAD/L/S Spine Min 4 Views IMPRESSION: Grade 1 retrolisthesis of L2 over L3 and L3 over L4. Reading Location: [facility] CC: Dr. Stephane Anna MD Associate Sales Manager: Signed Normal [facility] Absolute lymphocyte countOrd ered By: Stephane Anna on 01-25-2025 Lymphocytes Auto (Unsp spec) [#/Vol] 2.05 10*3/uL 0.83-4.51 [facility] Absolute neutrophil countOrd ered By: Stephane Anna on 01-25-2025 Neutrophils (Bld) [#/Vol] 3.0 10*3/uL 2.0-7.7 [facility] Anion gap in Serum or Plasma Ordered By: Stephane Anna on 01-25-2025 Anion gap [Moles/Vol] 10 mmol/L 5-15 [facility] Automated lymphocyte count a s percentage of total leukocytesOrdered By: Stephane Anna on 01-25-2025 Lymphocytes/100 WBC Auto (Unsp spec) 36.1 % 19-41 [facility] BUN/creatinine ratioOrdered By: Stephane Anna on 01-25-2025 Urea nitrogen/Creatinine [Mass ratio] 19.2 mg/mg 10-20 [facility] Basophil percentageOrdered B y: Stephane Anna on 01-25-2025 Basophils/100 WBC (Bld) 0.9 % 0-1 [facility] Bilirubin, totalOrdered By: Stepahne Anna on 01-25-2025 Bilirubin [Mass/Vol] 0.75 mg/dL 0.00-1.30 [facility] CBC W/Diff, Automatedon Absolute Lymph 2.05 X10 3/uL Normal 0.83-4.51 [facility] Comment on above: Performed By: #### L 100.0100, L500.4100, L506.1001, L500.4050 #### [facility] [facility] [address] [place], [address] Absolute Neut 3.0 X10 3/uL Normal 2.0-7.7 [facility] Comment on above: Performed By: #### L 100.0100, L500.4100, L506.1001, L500.4050 #### [facility] [address] [place], [address] Basophils/100 WBC (Bld) 0.9 % Normal 0-1 [facility] Comment on above: Performed By: #### L 100.0100, L500.4100, L506.1001, L500.4050 #### [facility] [address] [place], [address] Eosinophils/100 WBC (Bld) 1.9 % Normal 0-5 [facility] Comment on above: Performed By: #### L 100.0100, L500.4100, L506.1001, L500.4050 #### [facility] [address] [place], [address] Erythrocyte distribution width (RBC) [Ratio] 11.7 % Normal 11.6-14.6 [facility] Comment on above: Performed By: #### L 100.0100, L500.4100, L506.1001, L500.4050 #### [facility] [address] [place], [address] Hematocrit (Bld) [Volume fraction] 39.4 % Normal 37-47 [facility] Comment on above: Performed By: #### L 100.0100, L500.4100, L506.1001, L500.4050 #### [facility] [address] [place], [address] Hemoglobin (Bld) [Mass/Vol] 12.8 g/dL Normal 12.0-15.0 [facility] Comment on above: Performed By: #### L 100.0100, L500.4100, L506.1001, L500.4050 #### [facility] [address] [place], [address] IG% 0.200 Normal 0.0-0.9 [facility] Comment on above: Result Comment: IG% - Immature Granulocytes (promyelocytes, myelocytes and metamyelocytes) > 1% indicates that a LEFT SHIFT is Present. Performed By: #### L 100.0100, L500.4100, L506.1001, L500.4050 #### [facility] [address] [place], [address] Lymphocytes/100 WBC (Bld) 36.1 % Normal 19-41 [facility] Comment on above: Performed By: #### L 100.0100, L500.4100, L506.1001, L500.4050 #### [facility] [address] [place], [address] MCH (RBC) [Entitic mass] 31.9 pg Normal 27.0-32.0 [facility] Comment on above: Performed By: #### L 100.0100, L500.4100, L506.1001, L500.4050 #### [facility] [address] [place], [address] MCHC (RBC) [Mass/Vol] 32.5 g/dL Normal 32-36 [facility] Comment on above: Performed By: #### L 100.0100, L500.4100, L506.1001, L500.4050 #### [facility] [address] [place], [address] MCV (RBC) [Entitic vol] 98.3 fL Normal 81-99 [facility] Comment on above: Performed By: #### L 100.0100, L500.4100, L506.1001, L500.4050 #### [facility] [address] [place], [address] Monocytes/100 WBC (Bld) 8.1 % Normal 0-10 [facility] Comment on above: Performed By: #### L 100.0100, L500.4100, L506.1001, L500.4050 #### [facility] [address] [place], [address] Neutrophils/100 WBC (Bld) 52.8 % Normal 47-70 [facility] Comment on above: Performed By: #### L 100.0100, L500.4100, L506.1001, L500.4050 #### [facility] [address] [place], [address] Nucleated RBC (Bld) [#/Vol] 0 10*3/uL Normal 0-5 [facility] Comment on above: Performed By: #### L 100.0100, L500.4100, L506.1001, L500.4050 #### [facility] [address] [place], [address] Platelet mean volume (Bld) [Entitic vol] 9.3 fL Normal 6.2-12.0 [facility] Comment on above: Performed By: #### L 100.0100, L500.4100, L506.1001, L500.4050 #### [facility] [address] [place], [address] Platelets (Bld) [#/Vol] 254 10*3/uL Normal 150-450 [facility] Comment on above: Performed By: #### L 100.0100, L500.4100, L506.1001, L500.4050 #### [facility] [address] [place], [address] RBC (Bld) [#/Vol] 4.01 10*6/uL Low 4.2-5.4 [facility] Comment on above: Performed By: #### L 100.0100, L500.4100, L506.1001, L500.4050 #### [facility] [address] [place], [address] RDW SD 42.3 fl Normal 35.1-43.9 [facility] Comment on above: Performed By: #### L 100.0100, L500.4100, L506.1001, L500.4050 #### [facility] [address] [place], [address] WBC (Bld) [#/Vol] 5.7 10*3/uL Normal 4.4-11.0 [facility] Comment on above: Performed By: #### L 100.0100, L500.4100, L506.1001, L500.4050 #### [facility] [address] [place], [address] Calculated very low density lipoprotein (VLDL) cholesterol measurementOrdered By: Stephane Anna on 01-25-2025 Calculated very low density lipoprotein (VLDL) cholesterol measurement 20 mg/dL 5-40 [facility] Carbon dioxide, total [Moles /volume] in [place] venous bloodOrdered By: Stephane Anna on 01-25-2025 CO2 [Moles/Vol] 25.5 mmol/L 21.0-32.0 [facility] Chloride assayOrdered By: Rakan Anna on 01-25-2025 Chloride [Moles/Vol] 105 mmol/L 98-108 [facility] Metabolic Prof ilon 01-25-2025 Albumin [Mass/Vol] 4.3 g/dL Normal 3.4-4.8 [facility] Comment on above: Performed By: #### L 100.0100, L500.4100, L506.1001, L500.4050 ####[facility] [address] [place], [address] Albumin/Globulin [Mass ratio] 1.7 {ratio} Normal 0.9-2.4 [facility] Comment on above: Performed By: #### L 100.0100, L500.4100, L506.1001, L500.4050 ####[facility] [address] [place], [address] ALK PHOS 78 U/L Normal 35-104 [facility] Comment on above: Performed By: #### L 100.0100, L500.4100, L506.1001, L500.4050 ####[facility] [address] [place], [address] ALT [Catalytic activity/Vol] 12 U/L Normal <=34 [facility] Comment on above: Performed By: #### L 100.0100, L500.4100, L506.1001, L500.4050 ####[facility] [address] [place], [address] AST [Catalytic activity/Vol] 17 U/L Normal <=31 [facility] Comment on above: Performed By: #### L 100.0100, L500.4100, L506.1001, L500.4050 ####[facility] [address] [place], [address] Bilirubin [Mass/Vol] 0.75 mg/dL Normal 0.00-1.30 [facility] Comment on above: Performed By: #### L 100.0100, L500.4100, L506.1001, L500.4050 ####[facility] [address] [place], [address] BUN/CRE 19.2 RATIO Normal 10-20 [facility] Comment on above: Performed By: #### L 100.0100, L500.4100, L506.1001, L500.4050 ####[facility] [address] [place], [address] Calcium [Mass/Vol] 9.3 mg/dL Normal 7.6-11.0 [facility] Comment on above: Performed By: #### L 100.0100, L500.4100, L506.1001, L500.4050 ####[facility] [address] [place], [address] Chloride [Moles/Vol] 105 mmol/L Normal 98-108 [facility] Comment on above: Performed By: #### L 100.0100, L500.4100, L506.1001, L500.4050 ####[facility] [address] [place], [address] CO2 [Moles/Vol] 25.5 mmol/L Normal 21.0-32.0 [facility] Comment on above: Performed By: #### L 100.0100, L500.4100, L506.1001, L500.4050 ####[facility] [address] [place], [address] Creatinine [Mass/Vol] 0.72 mg/dL Normal 0.70-1.20 [facility] Comment on above: Performed By: #### L 100.0100, L500.4100, L506.1001, L500.4050 ####[facility] [address] [place], [address] GAP 10 Normal 5-15 [facility] Comment on above: Performed By: #### L 100.0100, L500.4100, L506.1001, L500.4050 ####[facility] [address] [place], [address] GFR/1.73 sq M.predicted among non-blacks MDRD (S/P/Bld) [Vol rate/Area] 86 mL/min/{1.73_m2} Normal >60 [facility] Comment on above: Result Comment: mL/m in/1.73m2 CKD-EPI Creatinine Equation (2020) Performed By: #### L 100.0100, L500.4100, L506.1001, L500.4050 ####[facility] [address] [place], [address] Globulin (S) [Mass/Vol] 2.5 g/dL Normal 2.2-4.2 [facility] Comment on above: Performed By: #### L 100.0100, L500.4100, L506.1001, L500.4050 ####[facility] [address] [place], [address] Glucose [Mass/Vol] 93 mg/dL Normal 70-99 [facility] Comment on above: Performed By: #### L 100.0100, L500.4100, L506.1001, L500.4050 ####[facility] [address] [place], [address] Potassium [Moles/Vol] 4.4 mmol/L Normal 3.3-5.1 [facility] Comment on above: Performed By: #### L 100.0100, L500.4100, L506.1001, L500.4050 ####[facility] [address] [place], [address] Sodium [Moles/Vol] 140 mmol/L Normal 133-145 [facility] Comment on above: Performed By: #### L 100.0100, L500.4100, L506.1001, L500.4050 ####[facility] [address] [place], [address] T PROT 6.9 g/dL Normal 5.9-8.4 [facility] Comment on above: Performed By: #### L 100.0100, L500.4100, L506.1001, L500.4050 ####[facility] [address] [place], [address] Urea nitrogen [Mass/Vol] 14 mg/dL Normal 4-19 [facility] Comment on above: Performed By: #### L 100.0100, L500.4100, L506.1001, L500.4050 ####[facility] [address] [place], [address] Eosinophil percentageOrdered By: Stephane Anna on 01-25-2025 Eosinophils/100 WBC (Bld) 1.9 % 0-5 [facility] Erythrocyte distribution wid th ratioOrdered By: Stephane Anna on 01-25-2025 Erythrocyte distribution width (RBC) [Ratio] 11.7 % 11.6-14.6 [facility] Erythrocyte distribution wid th standard deviationOrdered By: Stephane Anna on 01-25-2025 Erythrocyte distribution width (RBC) [Ratio] 42.3 fl 35.1-43.9 [facility] Glomerular filtration rate ( GFR) estimation/1.73 sq m using serum, plasma, or whole bOrdered By: Stephane Anna on 01-25-2025 GFR/1.73 sq M.predicted among non-blacks MDRD (S/P/Bld) [Vol rate/Area] 86 mL/min/{1.73_m2} >60 [facility] Comment on above: mL/min/1.73m2 CKD-EP I Creatinine Equation (2020) Hematocrit Auto (Bld) [Volum e fraction]Ordered By: Stephane Anna on 01-25-2025 Hematocrit (Bld) [Volume fraction] 39.4 % 37-47 [facility] Hemoglobin measurementOrdere d By: Stephane Anna on 01-25-2025 Hemoglobin (Bld) [Mass/Vol] 12.8 g/dL 12.0-15.0 [facility] Immature granulocytes/100 WB C Auto (Bld)Ordered By: Stephane Anna on 01-25-2025 Immature granulocytes/100 WBC (Bld) 0.200 % 0.0-0.9 [facility] Comment on above: IG% - Immature Granu locytes (promyelocytes, myelocytes and metamyelocytes) > 1% indicates that a LEFT SHIFT is Present. LDL calc ser/plasOrdered By: Stephane Anna on 01-25-2025 Cholesterol in LDL [Mass/Vol] 131 mg/dL [facility] Comment on above: Irwcsdvymx=085-170 m g/dL & Higher Ljbn=474 mg/dL or greater Laboratory - Chemistry and C hemistry - challengeOrdered By: Stephane Anna on 01-25-2025 AST [Catalytic activity/Vol] 17 U/L <32 [facility] Lipid Profileon 01-25-2025 CHOL:HDL 3.13 Normal [facility] Comment on above: Performed By: #### L 100.0100, L500.4100, L506.1001, L500.4050 ####[facility] [address] [place], [place], [address] Cholesterol [Mass/Vol] 222 mg/dL High <=200 [facility] Comment on above: Result Comment: Chol esterol level, Desirable <200 mg/dL Borderline high cholesterol 200-239 mg/dL High cholesterol >=240 mg/dL Recommendations of the NCEP Adult Treatment Panel for the following risk-cutoff thresholds for the [place] population. Performed By: #### L 100.0100, L500.4100, L506.1001, L500.4050 ####[facility] [address] [place], [address] Cholesterol in HDL [Mass/Vol] 71 mg/dL Normal [facility] Comment on above: Result Comment: Deb onal Cholesterol Education Program (NCEP) guidelines: <40 mg/dL: Low HDL-cholesterol (major risk factor for CHD) >= 60 mg/dL: High HDL-cholesterol (negative risk factor for CHD) HDL-cholesterol is affected by a number of factors, e.g. smoking, exercise, hormones, sex and age. Performed By: #### L 100.0100, L500.4100, L506.1001, L500.4050 ####[facility] [address] [place], [address] Cholesterol in LDL [Mass/Vol] 131 mg/dL Normal [facility] Comment on above: Result Comment: Bord qnjott=571-485 mg/dL Higher Lwuo=528 mg/dL or greater Performed By: #### L 100.0100, L500.4100, L506.1001, L500.4050 ####[facility] [address] [place], [address] Cholesterol in VLDL [Mass/Vol] 20 mg/dL Normal 5-40 [facility] Comment on above: Performed By: #### L 100.0100, L500.4100, L506.1001, L500.4050 ####[facility] [address] [place], [address] Triglyceride [Mass/Vol] 102 mg/dL Normal [facility] Comment on above: Result Comment: The drugs N-Acetylcysteine and Metamizole may falsely depress this assay. Normal range: <150 mg/dL Borderline High: 150-199 mg/dL High: 200-499 mg/dL Very High: >500 mg/dL Performed By: #### L 100.0100, L500.4100, L506.1001, L500.4050 ####[facility] [address] [place], [address] MCV (mean corpuscular volume ) determinationOrdered By: Stephane Anna on 01-25-2025 MCV (RBC) [Entitic vol] 98.3 fL 81-99 [facility] Mean corpuscular hemoglobin (MCH) determinationOrdered By: Stephane Anna on 01-25-2025 MCH (RBC) [Entitic mass] 31.9 pg 27.0-32.0 [facility] Mean corpuscular hemoglobin concentration (MCHC) determinationOrdered By: Stephane Anna on 01-25-2025 MCHC (RBC) [Mass/Vol] 32.5 g/dL 32-36 [facility] Mean platelet volume determi nationOrdered By: Stephane Anna on 01-25-2025 Platelet mean volume (Bld) [Entitic vol] 9.3 fL 6.2-12.0 [facility] Monocyte percentageOrdered B y: Stephane Anna on 01-25-2025 Monocytes/100 WBC (Bld) 8.1 % 0-10 [facility] Neutrophil percentageOrdered By: Stephane Anna on 01-25-2025 Neutrophils/100 WBC (Bld) 52.8 % 47-70 [facility] Nucleated red blood cell per centageOrdered By: Stephane Anna on 01-25-2025 Nucleated RBC/100 WBC (Bld) [Ratio] 0 % 0-5 [facility] Platelet countOrdered By: Rakan Anna on 01-25-2025 Platelets (Bld) [#/Vol] 254 10*3/uL 150-450 [facility] Potassium measurement (mass/ volume)Ordered By: Stephane Anna on 01-25-2025 Potassium (Unsp spec) [Mass/Vol] 4.4 mmol/L 3.3-5.1 [facility] RBC Auto (Bld) [#/Vol]Ordere d By: Stephane Anna on 01-25-2025 RBC (Bld) [#/Vol] 4.01 10*6/uL Low 4.2-5.4 [facility] Screening total cholesterol/ high density lipoprotein (HDL) cholesterol ratioOrdered By: Stephane Anna on 01-25-2025 Cholesterol.total/Stacey sterol in HDL [Mass ratio] 3.13 {ratio} [facility] Serum creatinine measurement (mass/volume)Ordered By: Stephane Anna on 01-25-2025 Creatinine [Mass/Vol] 0.72 mg/dL 0.70-1.20 [facility] Serum globulin measurementOr dered By: Stephane Anna on 01-25-2025 Globulin (S) [Mass/Vol] 2.5 g/dL 2.2-4.2 [facility] Serum glucose measurement (m ass/volume)Ordered By: Stephane Anna on 01-25-2025 Glucose [Mass/Vol] 93 mg/dL 70-99 [facility] Serum or plasma alanine small otransferase (ALT) measurementOrdered By: Stephane Anna on 01-25-2025 ALT [Catalytic activity/Vol] 12 U/L <35 [facility] Serum or plasma albumin sammi urement (mass/volume)Ordered By: Stephane Anna on 01-25-2025 Albumin [Mass/Vol] 4.3 g/dL 3.4-4.8 [facility] Serum or plasma albumin/glob ulin mass ratioOrdered By: Stephane Anna on 01-25-2025 Albumin/Globulin [Mass ratio] 1.7 {ratio} 0.9-2.4 [facility] Serum or plasma alkaline andreina sphatase measurementOrdered By: Stephane Anna on 01-25-2025 ALP [Catalytic activity/Vol] 78 U/L 35-104 [facility] Serum or plasma calcium sammi urement (mass/volume)Ordered By: Stephane Anna on 01-25-2025 Calcium [Mass/Vol] 9.3 mg/dL 7.6-11.0 [facility] Serum or plasma cholesterol in HDL measurement (mass/volume)Ordered By: Stephane Anna on 01-25-2025 Cholesterol in HDL [Mass/Vol] 71 mg/dL >40 [facility] Comment on above: National Cholesterol Education Program (NCEP) guidelines:<40 mg/dL: Low HDL-cholesterol (major risk factor for CHD)>= 60 mg/dL: High HDL-cholesterol (negative risk factor for CHD)HDL-cholesterol is affected by a number of factors, e.g. smoking, exercise, hormones, sex and age. Serum or plasma cholesterol measurement (mass/volume)Ordered By: Stephane Anna on 01-25-2025 Cholesterol [Mass/Vol] 222 mg/dL High <201 [facility] Comment on above: Cholesterol level, D esirable <200 mg/dLBorderline high cholesterol 200-239 mg/dLHigh cholesterol >=240 mg/dLRecommendations of the NCEP Adult Treatment Panel for the following risk-cutoff thresholds for the [place] population. Serum or plasma urea nitroge n measurement (mass/volume)Ordered By: Stephane Anna on 01-25-2025 Urea nitrogen [Mass/Vol] 14 mg/dL 4-19 [facility] Sodium levelOrdered By: Bernardo Anna on 01-25-2025 Sodium [Moles/Vol] 140 mmol/L 133-145 [facility] Total proteinOrdered By: Maneul Anna on 01-25-2025 Protein [Mass/Vol] 6.9 g/dL 5.9-8.4 [facility] Triglycerides measurementOrd ered By: Stephane Anna on 01-25-2025 Triglyceride [Mass/Vol] 102 mg/dL <199 [facility] Comment on above: The drugs N-Acetylcy steine and Metamizole may falsely depress this assay. Normal range: <150 mg/dLBorderline High: 150-199 mg/dLHigh: 200-499 mg/dLVery High: >500 mg/dL Vitamin D,25 Hydroxyon 01-25 Vitamin D 25-OH 30.1 ng/mL Normal 30-100 [facility] Comment on above: Result Comment: Sandrine min D Status Deficiency: <20 ng/mL (50nmol/L) Insufficiency: 20-30 ng/mL (50-75 nmol/L) Sufficiency: 30-100 ng/mL (75-250 nmol/L) Toxicity: >100 ng/mL (>250 nmol/L) Performed By: #### L 100.0100, L500.4100, L506.1001, L500.4050 ####[facility] [address] [place], [address] White blood cell (WBC) count Ordered By: Stephane Anna on 01-25-2025 WBC (Bld) [#/Vol] 5.7 10*3/uL 4.4-11.0 [facility] Internal Medicine Office Vis iton 01-24-2025 Internal Medicine Office Visit [facility] [address] [place] [address] [place] [address] OFFICE VISIT Date of Service: 01/24/25 MR#: [id number] Acct: [id number] Name: FLORES MARSHALL Ashwini Rep #: [id number] : 1950 Provider: Dr. Stephane moser MD Age/Sex: 74/F Location: [facility] Status: Signed Intake Vital Signs 01/24/24 08:59 11/17/24 15:20 01/24/25 08:52 Height 5 ft 2 in 5 ft 2 in 5 ft 2 in Weight: 124 lb BMI 22.6 BP 132/82 H Blood Pressure Location Lt brachial Position Sitting Respiration 16 Pulse 94 Pulse Source Monitor Temp 97.8 F Temp Source Temporal Pulse Oximetry (%) 96 Oxygen Delivery Method room air Intake Visit Reasons: YEARLY Chief Complaint: yearly Metal Painter Required: No Accompanied by: Is patient in pain?: No Allergies erythromycin base Allergy (Unknown, Verified 11/17/24 15:21) Unknown loratadine (From Claritin-D) Allergy (Verified 11/17/24 15:21) Rash naproxen (From Aleve) Allergy (Verified 11/17/24 15:21) Rash pseudoephedrine (From Claritin-D) Allergy (Verified 11/17/24 15:21) Rash Medications ???Medication ???Instructions ???Recorded ???Confirmed ???Type multivitamin 1 tab PO QAM 07/16/17 01/24/25 His tory estradiol 0.01% (0.1 mg/gram) See Rx Instructions vaginal DAILY 06/19/24 01/24/25 Rx vaginal cream #42.5 grams citalopram 10 mg tablet 10 mg PO QDAY #90 tabs 12/19/24 Rx Have you fallen in the past year?: No Nurse's Note: having bladder and urinary issues pessary placed otherwise patient doing well PFSH Medical History Right hip pain Pelvic prolapse Piriformis syndrome COVID History of fractured rib Acute kidney injury Health care maintenance Poison gisela dermatitis Chronic back pain Routine health maintenance Hypertension Anxiety and depression Seasonal allergies Hyperlipidemia Surgical History H/O bilateral cataract extraction History of tonsillectomy Family History Father Heart disease developed in his Cancer skin CA in his Mother Heart disease developed in her Social History adopted: No household members: spouse number of children: 5 current occupational status: retired pets and animals: No sexually active: No Smoking Status: Never smoker alcohol intake: never substance use type: does not use caffeine: Yes (1) Type: coffee what type of physical activity do you participate in: walking and yoga frequency: daily duration: 15-30 minutes/day seatbelt use: always do you feel safe at home: Yes additional social history: Kayleen - retired HPI HPI Chief Complaint: yearly Details: FLORES MARSHALL, is a 74-year-old female presenting for her yearly visit/FU of her chronic conditions The patient reports a history of uterine and bladder prolapse, for which she opted for a pessary instead of surgical intervention. She is currently using a small dose of estrogen cream twice a week, prescribed by Dr. Mobley, who also manages the pessary maintenance every three months. The patient experiences occasional right hip pain, which she attributes to sciatica, as the pain radiates from her buttocks to her groin. Progressively gotten worse over the last, now open to imaging The patient monitors her blood pressure at home, reporting systolic readings around 130-139 mmHg, with diastolic readings consistently normal. She acknowledges that her blood pressure readings are sometimes elevated during clinic visits due to rushing, but generally maintains a healthy lifestyle with attention to diet and activity. The patient is currently on Celexa for depression, with no need for refills at this time. She is due for a Cologuard test, mammogram, and bone density scan. Attestation: Documentation on this patient encounter was supported using ambient scribe technology/ voice AI technology. The patient consented to recording for the purpose of documenting the encounter. Provider reviewed content of the generated note prior to signature. ROS Const Constitutional: No body ache, excessive sweating, fatigue, fever(s), frequent falls, headache(s), snoring, weakness, weight change, sleep problems or change in appetite Eyes Eyes: No blurry vision, change in vision, eye pain or Light sensitivity ENT ENT: No abnormal hearing, ear or mastoid pain, tinnitus, nasal congestion, headache(s), neck pain or sore throat Resp Respiratory: No cough, shortness of breath, snoring or wheezing Cardio Cardiology: No chest pain at rest, chest pain with exertion, excessive sweating, shortness of breath, dyspnea on exertion, l (more content not included)... Normal [facility] Genital Culture Comprehensiv ronny 11-19-2024 VAC Reason for Exam: vaginal discharge #1 Penicillin is the drug of choice for Beta Streptococcal infections. For Penicillin allergic patients, Erythromycin may be used. Genital Culture Comprehensive No yeast, Gardnerella, or Neisseria isolated. Streptococcus group G Amount Growth 2+ Normal [facility] Comment on above: Performed By: #### M 100.3200, M1 #### [facility] [address] [place], [place], [id number] Gram Stainon 11-18-2024 GS Reason for Exam: vaginal discharge Gram Stain No Gram negative diplococci Rare White Blood Cells 1+ Gram positive cocci 1+ Gram negative rods 2+ Gram positive rods Normal [facility] Comment on above: Performed By: #### M 100.3200, M1.1999 #### [facility] [address] [place], [place], [id number] Gram stainOrdered By: Henrique Smith on 11-17-2024 Microscopic observation Gram stain Nom (Unsp spec) [facility] Slide Attendant Office Visit Reporton 11-17-2024 Slide Attendant Office Visit Report [facility] [address], [address] [place] [address] OFFICE VISIT Date of Service: 11/17/24 MR#: [id number] Acct: [id number] Name: FLORES MARSHALL Rep #: [id number] : 1950 Provider: Dr. Jennifer Valenzuela, DO Age/Sex: 73/F Location: [facility] Status: Signed Intake Vital Signs 09/25/24 08:23 11/17/24 15:20 Height 5 ft 2 in 5 ft 2 in Weight: 123 lb 8 oz 123 lb 8 oz BMI 22.6 22.6 BP 169/82 H 150/88 H Intake Visit Reasons: 6wk FU Chief Complaint: pessary maintenance Metal Painter Required: No Is patient in pain?: No Allergies erythromycin base Allergy (Unknown, Verified 11/17/24 15:21) Unknown loratadine (From Claritin-D) Allergy (Verified 11/17/24 15:21) Rash naproxen (From Aleve) Allergy (Verified 11/17/24 15:21) Rash pseudoephedrine (From Claritin-D) Allergy (Verified 11/17/24 15:21) Rash Medications ???Medication ???Instructions ???Recorded ???Confirmed ???Type multivitamin 1 tab PO QAM 07/16/17 11/17/24 His tory citalopram 10 mg tablet 10 mg PO QDAY #90 tabs 10/25/23 Rx estradiol 0.01% (0.1 mg/gram) See Rx Instructions vaginal DAILY 06/19/24 11/17/24 Rx vaginal cream #42.5 grams Is last menstrual period known: No Post menopausal: No Patient : No : No PFSH Medical History Right hip pain Pelvic prolapse Piriformis syndrome COVID History of fractured rib Acute kidney injury Health care maintenance Poison gisela dermatitis Chronic back pain Routine health maintenance Hypertension Anxiety and depression Seasonal allergies Hyperlipidemia Surgical History H/O bilateral cataract extraction History of tonsillectomy Family History Father Heart disease developed in his s Cancer skin CA in his s Mother Heart disease developed in her s Social History adopted: No household members: spouse number of children: 5 current occupational status: retired pets and animals: No sexually active: No Smoking Status: Never smoker alcohol intake: never substance use type: does not use caffeine: Yes (1) Type: coffee what type of physical activity do you participate in: walking and yoga frequency: daily duration: 15-30 minutes/day seatbelt use: always do you feel safe at home: Yes additional social history: Kayleen - retired HPI 6wk FU Details: FLORES MARSHALL is a 73 year old who presents for pessary maintenance and ultrasound follow up. The ultrasound shows a 5mm lining with some trace fluid in the canal but she denies bleeding. She states that she likes the pessary and has helped her a lot especially improved her hemorrhoid symptoms. 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 ROS Const ROS Unobtainable: All systems reviewed are unremarkable except as noted in H Resp Resp: Reports system reviewed and no additional complaints, except as documented; Denies cough GI GI: Reports as per HPI Psych Psych: Reports system reviewed and no additional complaints, except as documented Exam Const General: cooperative, healthy appearing, comfortable and no acute distress Resp Effort Inspection: normal respiratory effort External Female Exam: normal appearance of the urethra Urethra: normal appearance of the urethra Speculum Exam - Vagina: normal appearance of the vagina Other: pessary removed and cleansed with warm water and soap. The vaginal canal was cleansed with betadine. no ulcerations were noted. Enterocele noted. The pessary was coated in trimosan ointment and replaced without difficulty. Skin General: no rashes or lesions noted Psych Appearance: grossly normal Speech and Movement: speech and movement normal Coding Level of Care Code Off vis,est,level 3 Diagnoses Pelvic prolapse N81.9 Assessment and Plan Assessment and Plan (1) Pelvic prolapse: Status: Chronic Plan: doing well with pessary. red top vaginitis smear collected for some yellow discharge- suspect normal physiologic. Orders: Orders Pessary Check Today N81.2 - Incomplete uterovaginal prolapse 11/17/24 1551 Date Jennifer Mobley DO Cosigner Signature: Date (if applicable) CC: Normal [facility] Pelvic (Non )on 10-24 Pelvic (Non ) [facility] Imaging Services [address] [place] [address] Pelvic (Non ) MR#: [id number] Acct: [id number] Name: FLORES MARSHALL Rep #: [id number] : 1950 F 73 From: Carlos Zhang MD PCP: Dr. Stephane Anna MD Status: REG CLI Study: Pelvic (Non ) Date of Exam: 11/10/24 Exam# [id number] Ordering Dr: Jennifer Mobley DO PROCEDURE: PELVIC (NON ) ([facility]), 11/10/2024 REASON FOR EXAM: ENLARGED UTERUS TECHNIQUE: Grayscale and color doppler transabdominal pelvic ultrasound was performed. COMPARISON: None FINDINGS: Uterus: Suboptimally visualized by transabdominal only technique. 6.4 x 4.1 x 1.9 cm, Anteverted. Heterogeneous myometrium. Endometrium: 5 mm, unremarkable. Trace endometrial fluid. Cervix: Unremarkable. Right ovary: Suboptimally visualized by transabdominal only technique. 2.5 x 1.3 x 1.8 cm (estimated volume 1.2 mL), grossly unremarkable transabdominal appearance. Left ovary: Not visualized, likely due to postmenopausal small postmenopausal size, positioning, and/or shadowing bowel gas. Free fluid: None visualized. Other: Pessary is noted. Estimated bladder volume 138 mL. US/Pelvic (Non ) IMPRESSION: 1. No acute transabdominal findings noting that the LEFT ovary was not identified. 2. Endometrial thickness would be considered borderline abnormally increased for a postmenopausal female in the setting of abnormal bleeding. In the absence of abnormal bleeding, this would be considered high-normal. Additionally, trace endometrial fluid is present, probably unexpected in a postmenopausal female. Correlate with patient history and follow-up as indicated. 3. Mildly heterogeneous myometrium is a nonspecific finding which could be seen in the setting of adenomyosis. 4. Additional description as above. Reading Location: [id number] CC: Dr. Stephane Anna MD; Dr. Jennifer Mobley DO Associate Sales Manager: Signed Normal [facility] PAP IG HPV APTIMA ,45on 09-29-2024 ADEQ Comment Normal . [facility] Comment on above: Order Comment: Speci men Comment: [id number] Specimen Comment: Source.............Cervix Specimen Comment: No. of containers..01 ThinPrep Vial Result Comment: Sati sfactory for evaluation. Endocervical and/or squamous metaplastic cells (endocervical component) are present. Performed By: #### L 7400.0280 #### [facility] [address] [place], [place], [id number] COMM . Normal . [facility] Comment on above: Order Comment: Speci men Comment: [id number] Specimen Comment: Source.............Cervix Specimen Comment: No. of containers..01 ThinPrep Vial Performed By: #### L 7400.0280 #### [facility] [address] [place], [place], [id number] COMMENT Comment Normal . [facility] Comment on above: Order Comment: Speci men Comment: [id number] Specimen Comment: Source.............Cervix Specimen Comment: No. of containers..01 ThinPrep Vial Result Comment: This liquid based ThinPrep(R) pap test was screened with the use of an image guided system. Performed By: #### L 7400.0280 #### [facility] [address] [place], [address] DIAG Comment Normal . [facility] Comment on above: Order Comment: Speci men Comment: [id number] Specimen Comment: Source.............Cervix Specimen Comment: No. of containers..01 ThinPrep Vial Result Comment: NEGA TIVE FOR INTRAEPITHELIAL LESION OR MALIGNANCY. Performed By: #### L 7400.0280 #### [facility] [address] [facility] [place], [address] HPV APTIMA, HR Positive Abnormal Negative [facility] Comment on above: Order Comment: Speci men Comment: [id number] Specimen Comment: Source.............Cervix Specimen Comment: No. of containers..01 ThinPrep Vial Result Comment: This nucleic acid amplification test detects fourteen high- risk HPV types (16,18,31,33,35,39,45,51,52,56,58,59,66,68) without differentiation. Performed By: #### L 7400.0280 #### [facility] [address] [place], [place], [address] HPV Erika 18,45 Negative Normal Negative [facility] Comment on above: Order Comment: Speci men Comment: [id number] Specimen Comment: Source.............Cervix Specimen Comment: No. of containers..01 ThinPrep Vial Result Comment: Perf ormed at: - [address] [id number] Manufacturing Maintenance Technician: Louise Granger MD, Phone: [phone] Performed at: = - [facility] [id number] Manufacturing Maintenance Technician: Louise Granger MD, Phone: [phone] Performed By: #### L 7400.0280 #### [facility] [address] [place], [place], [id number] HPV Erika Rfx Comment Normal . [facility] Comment on above: Order Comment: Speci men Comment: [id number] Specimen Comment: Source.............Cervix Specimen Comment: No. of containers..01 ThinPrep Vial Result Comment: Fina rivers, see HPV Genotype results. Performed By: #### L 7400.0280 #### [facility] [address] [place], [place], [id number] HPV Genotype 16 Negative Normal Negative [facility] Comment on above: Order Comment: Speci men Comment: [id number] Specimen Comment: Source.............Cervix Specimen Comment: No. of containers..01 ThinPrep Vial Performed By: #### L 7400.0280 #### [facility] [address] [place], [place], [address] PAPSMR Comment Normal . [facility] Comment on above: Order Comment: Speci men Comment: [id number] Specimen Comment: Source.............Cervix Specimen Comment: No. of containers..01 ThinPrep Vial Result Comment: The Pap smear is a screening test designed to aid in the detection of premalignant and malignant conditions of the uterine cervix. It is not a diagnostic procedure and should not be used as the sole means of detecting cervical cancer. Both false-positive and false-negative reports do occur. Performed By: #### L 7400.0280 #### [facility] [address] [place], [place], [id number] PERFORM Comment Normal . [facility] Comment on above: Order Comment: Speci men Comment: [id number] Specimen Comment: Source.............Cervix Specimen Comment: No. of containers..01 ThinPrep Vial Result Comment: Jessica Coto, Rotating Field Assembler (ASCP) Performed By: #### L 7400.0280 #### [facility] [address] [place], [address] Idea Man Cyto stain Nom (C vx/Vag) [ID]Ordered By: Jennifer Smith on 09-25-2024 Pap Smear Performed By Comment . [facility] Comment on above: Amanda Coto, Cytotec hnologist (ASCP) Cytology report Cyto stain D oc (Cvx/Vag)Ordered By: Jennifer Smith on 09-25-2024 Thin Prep Pap Smear Comment . [facility] Comment on above: The Pap smear is a s creening test designed to aid in thedetection of premalignant and malignant conditions of theuterine cervix. It is not a diagnostic procedure andshould not be used as the sole means of detecting cervicalcancer. Both false-positive and false-negative reports dooccur. Cytology report Cyto stain.t hin prep Doc (Cvx/Vag)Ordered By: Jennifer Smith on 09-25-2024 HPV Genotype Special Info Comment . [facility] Comment on above: Criteria met, see HP V Genotype results. HPV 16 DNA Probe+sig amp Ql (Cvx)Ordered By: Jennifer Smith on 09-25-2024 HPV Type 16 Comment Negative Negative [facility] HPV 16+18+31+33+35+39+45+51+ 52+56+58+59+66+68 DNA Probe+sig amp Ql (Cvx)Ordered By: Jennifer Smith on 09-25-2024 Human Papillomavirus High Risk Positive High Negative [facility] Comment on above: This nucleic acid am plification test detects fourteen high-risk HPV types (16,18,31,33,35,39,45,51,52,56,58,59,66,68)without differentiation. HPV E6+E7 mRNA HOA+probe Ql (Cvx)Ordered By: Jennifer Smith on 09-25-2024 HPV Type 18 Comment Negative Negative [facility] Comment on above: Performed at: WB - [facility] [address] [place], [place] [id number] Director: Louise Granger MD, Phone: [phone] at: =G - [facility] [address] [facility], [place] [id number] Director: Louise Granger MD, Phone: [phone] Image-guided ThinPrep PapOrd ered By: Jennifer Smith on 09-25-2024 Pap Smear Note Comment . [facility] Comment on above: This liquid based Th inPrep(R) pap test was screened withthe use of an image guided system. Image-guided liquid-based Pa pOrdered By: Jennifer Smith on 09-25-2024 Pap Smear Diagnosis Comment . [facility] Comment on above: NEGATIVE FOR INTRAEP ITHELIAL LESION OR MALIGNANCY. Slide Attendant Office Visit Reporton 09-25-2024 Slide Attendant Office Visit Report [facility] [address], [address] [place] [address] OFFICE VISIT Date of Service: 09/25/24 MR#: [id number] Acct: [id number] Name: FLORES MARSHALL Ashwini Rep #: [id number] : 1950 Provider: Dr. Jennifer Valenzuela DO Age/Sex: 73/F Location: [facility] Status: Signed Intake Vital Signs 02/23/24 10:26 09/12/24 10:30 09/25/24 08:23 Height 5 ft 2 in 5 ft 2 in 5 ft 2 in Weight: 124 lb 123 lb 8 oz BMI 22.6 22.6 BP 134/82 H 169/82 H Blood Pressure Location Lt brachial Position Sitting Pulse 84 Pulse Source Monitor Intake Visit Reasons: Discuss surgical mgmt for uterovaginal prolapse Metal Painter Required: No Is patient in pain?: No Allergies erythromycin base Allergy (Unknown, Verified 09/25/24 08:29) Unknown loratadine (From Claritin-D) Allergy (Verified 09/25/24 08:29) Rash naproxen (From Aleve) Allergy (Verified 09/25/24 08:29) Rash pseudoephedrine (From Claritin-D) Allergy (Verified 09/25/24 08:29) Rash Medications ???Medication ???Instructions ???Recorded ???Confirmed ???Type multivitamin 1 tab PO QAM 07/16/17 09/25/24 His tory citalopram 10 mg tablet 10 mg PO QDAY #90 tabs 10/25/23 Rx estradiol 0.01% (0.1 mg/gram) See Rx Instructions vaginal DAILY 06/19/24 09/25/24 Rx vaginal cream #42.5 grams Is last menstrual period known: No Post menopausal: Yes Patient : No : No PFSH Medical History Right hip pain Pelvic prolapse Piriformis syndrome COVID History of fractured rib Acute kidney injury Health care maintenance Poison gisela dermatitis Chronic back pain Routine health maintenance Hypertension Anxiety and depression Seasonal allergies Hyperlipidemia Surgical History H/O bilateral cataract extraction History of tonsillectomy Family History Father Heart disease developed in his Cancer skin CA in his Mother Heart disease developed in her s Social History adopted: No household members: spouse number of children: 5 current occupational status: retired pets and animals: No sexually active: No Smoking Status: Never smoker alcohol intake: never substance use type: does not use caffeine: Yes (1) Type: coffee what type of physical activity do you participate in: walking and yoga frequency: daily duration: 15-30 minutes/day seatbelt use: always do you feel safe at home: Yes additional social history: Kayleen - retired HPI Discuss surgical mgmt for uterovaginal prolapse Details: FLORES MARSHALL is a 73 year old [id number] presents for discussion of pelvic prolapse. She states that at times she feels like she is sitting on something and she believes it is her uterus or bladder. She is here today with her daughter, Rafaela. She has not been offered a pessary yet but knows what one is and is willing to try it out. ROS Const ROS Unobtainable: All systems reviewed are unremarkable except as noted in H Resp Resp: Reports system reviewed and no additional complaints, except as documented; Denies cough GI GI: Reports as per HPI Psych Psych: Reports system reviewed and no additional complaints, except as documented Exam Const General: cooperative, healthy appearing, comfortable, no acute distress and well groomed Neck Neck: normal visual inspection Resp Effort Inspection: normal respiratory effort GI Inspection: normal to inspection, non-distended and no obesity General: bimanual renal exam normal bilaterally External Female Exam: normal external appearance, normal appearance of the urethra and other (small introitus) Urethra: normal appearance of the urethra Speculum Exam - Vagina: vagina atrophic Speculum Exam - Cervix: normal appearance of the cervix Bimanual Exam- Vagina Uterus: enlarged and nontender Bimanual Exam- Adnexa, other: normal adnexae, cystocele and vaginal apex descent Pelvic Support: cystocele moderate and vaginal apex descent moderate Skin General: no rashes or lesions noted Psych Appearance: grossly normal Speech and Movement: speech and movement normal Office Procedures Pessary Insertion Pessary Insertion Indication for Pessary: Yes cystocele and Yes uterine prolapse Style: Yes ring with support Size:: 3 triamcinolone used:: Yes vaginal estrogen prescribed: No Details:: The patient was found to have a very small introitus. A size ring was folded and inserted with trimosan then opened up to fit the mckinney of the vagina. She tolerated this well during the procedure and then after with walking and going to the bathroom. Coding Level of (more content not included)... Normal [facility] Service comment (Unsp spec) [Interp]Ordered By: Jennifer Smith on 09-25-2024 Pap Smear Comment (3) . . [facility] Absolute lymphocyte countOrd ered By: Dr. Anna on 01-13-2023 Lymphocytes Auto (Unsp spec) [#/Vol] 1.62 10*3/uL 0.83-4.51 [facility] Basophil percentageOrdered B y: Dr. Anna on 01-13-2023 Basophils/100 WBC (Bld) 0.7 % 0-1 [facility] Bilirubin [Mass/Vol] 0.50 mg/dL 0.20-1.00 [facility] Comment on above: For patients on eltr ombopag therapy, use of Dimension [place] TBIL is not recommended. Chloride [Moles/Vol] 107 mmol/L 98-107 [facility] Cholesterol [Mass/Vol] 218 mg/dL <200 [facility] Comment on above: <200 mg/dL Desirable 200-240 mg/dL Borderline >240 mg/dL High Risk Eosinophils/100 WBC (Bld) 0.0 % 0-5 [facility] Glucose [Mass/Vol] 100 mg/dL 74-106 [facility] Comment on above: Fasting Glucose resu lt from 100 to 125 mg/dL suggests IMPAIRED HOMEOSTASIS per A.D.A. criteria. Neutrophils (Bld) [#/Vol] 3.5 10*3/uL 2.0-7.7 [facility] Neutrophils/100 WBC (Bld) 61.8 % 47-70 [facility] Potassium [Moles/Vol] 4.9 mmol/L 3.5-5.1 [facility] Protein [Mass/Vol] 7.1 g/dL 6.4-8.2 [facility] Sodium [Moles/Vol] 140 mmol/L 136-145 [facility] Triglyceride [Mass/Vol] 151 mg/dL <199 [facility] Comment on above: The drugs N-Acetylcy steine and Metamizole may falsely depress this assay.Serum Triglycerides Reference Interval Normal <150 mg/dL Borderline high 150 - 199 mg/dL High 200 - 499 mg/dL Very High > or = 500 mg/dL WBC (Bld) [#/Vol] 5.6 10*3/uL 4.4-11.0 [facility] Blood erythrocytes count (nu mber/volume)Ordered By: Dr. Anna on 01-13-2023 RBC (Bld) [#/Vol] 3.96 10*6/uL 4.2-5.4 [facility] Blood hemoglobin measurement (mass/volume)Ordered By: Dr. Anna on 01-13-2023 Hemoglobin (Bld) [Mass/Vol] 12.6 g/dL 12.0-15.0 [facility] Blood lymphocytes/100 leukoc ytesOrdered By: Dr. Anna on 01-13-2023 Lymphocytes/100 WBC (Bld) 29.0 % 19-41 [facility] Blood monocytes/100 leukocyt esOrdered By: Dr. Anna on 01-13-2023 Monocytes/100 WBC (Bld) 8.1 % 0-10 [facility] Blood platelet mean volumeOr dered By: Dr. Anna on 01-13-2023 Platelet mean volume (Bld) [Entitic vol] 9.6 fL 6.2-12.0 [facility] Determination of erythrocyte mean corpuscular volume (MCV)Ordered By: Dr. Anna on 01-13-2023 MCV (RBC) [Entitic vol] 100.3 fL 81-99 [facility] Hematocrit Auto (Bld) [Volum e fraction]Ordered By: Dr. Anna on 01-13-2023 Hematocrit (Bld) [Volume fraction] 39.7 % 37-47 [facility] Laboratory - Chemistry and C hemistry - challengeOrdered By: Dr. Anna on 01-13-2023 ALP [Catalytic activity/Vol] 85 U/L 45-117 [facility] ALT [Catalytic activity/Vol] 18 U/L 13-56 [facility] CO2 [Moles/Vol] 30.0 mmol/L 21.0-32.0 [facility] Globulin (S) [Mass/Vol] 3.4 g/dL 2.2-4.2 [facility] Urea nitrogen/Creatinine [Mass ratio] 14.9 mg/mg 10-20 [facility] Laboratory - Hematology and Cell countsOrdered By: Dr. Anna on 01-13-2023 Erythrocyte distribution width (RBC) [Entitic vol] 43.1 fL 35.1-43.9 [facility] Erythrocyte distribution width (RBC) [Ratio] 11.8 % 11.6-14.6 [facility] Immature granulocytes/100 WBC (Bld) 0.400 % 0.0-0.9 [facility] Comment on above: IG% - Immature Granu locytes (promyelocytes, myelocytes and metamyelocytes) > 1% indicates that a LEFT SHIFT is Present. MCH (RBC) [Entitic mass] 31.8 pg 27.0-32.0 [facility] Nucleated RBC/100 WBC (Bld) [Ratio] 0 % 0-5 [facility] MCHC Auto (RBC) [Mass/Vol]Or dered By: Dr. Anna on 01-13-2023 MCHC (RBC) [Mass/Vol] 31.7 g/dL 32-36 [facility] No Panel InformationOrdered By: Dr. Anna on 01-13-2023 Estimated GFR (MDRD) Amer 99 mL/min >60 [facility] Comment on above: GFR Calc Estimated GFR (MDRD) Non-Af Amer 82 mL/min >60 [facility] Comment on above: Non- GFR Calc Vitamin D 25-Hydroxy 28.4 ng/mL [facility] Comment on above: Vitamin D 25(OH) Sta tus Range Deficiency <20 ng/mL (50nmol/L) Insufficiency 20 - 30 ng/mL (50 - 75 nmol/L) Sufficiency 30 - 100 ng/mL (75 - 250 nmol/L) Toxicity >100 ng/mL (>250 nmol/L) Platelets bldOrdered By: Dr. Anna on 01-13-2023 Platelets (Bld) [#/Vol] 247 10*3/uL 150-450 [facility] Serum or plasma albumin sammi urement (mass/volume)Ordered By: Dr. Anna on 01-13-2023 Albumin [Mass/Vol] 3.7 g/dL 3.2-5.0 [facility] Serum or plasma albumin/glob ulin mass ratioOrdered By: Dr. Anna on 01-13-2023 Albumin/Globulin [Mass ratio] 1.1 {ratio} 0.9-2.4 [facility] Serum or plasma calcium sammi urement (mass/volume)Ordered By: Dr. Anna on 01-13-2023 Calcium [Mass/Vol] 9.4 mg/dL 8.5-10.1 [facility] Serum or plasma cholesterol in HDL measurement (mass/volume)Ordered By: Dr. Anna on 01-13-2023 Cholesterol in HDL [Mass/Vol] 66 mg/dL >40 [facility] Comment on above: The drugs N-Acetylcy steine and Metamizole may falsely depress this assay. Reference Range HDL <40 mg/dL Low HDL Cholesterol HDL >or= 60 mg/dL High HDL Cholesterol Serum or plasma cholesterol in VLDL measurement (mass/volume)Ordered By: Dr. Anna on 01-13-2023 Cholesterol in VLDL [Mass/Vol] 30 mg/dL 5-40 [facility] Serum or plasma creatinine m easurement (mass/volume)Ordered By: Dr. Anna on 01-13-2023 Creatinine [Mass/Vol] 0.74 mg/dL 0.55-1.02 [facility] Comment on above: The validity of the calculated GFR & GFRAA in patients over 70 years has not been determined. Clinical correlation is essential. Serum or plasma low density lipoprotein (LDL) cholesterol measurement (mass/volume)Ordered By: Dr. Anna on 01-13-2023 Cholesterol in LDL [Mass/Vol] 122 mg/dL 0-130 [facility] Serum or plasma urea nitroge n measurement (mass/volume)Ordered By: Dr. Anna on 01-13-2023 Urea nitrogen [Mass/Vol] 11 mg/dL 7-18 [facility] Thin prep Papanicolaou smear with manual screeningOrdered By: Dr. Anna on 01-13-2023 Thin prep Papanicolaou smear with manual screening 14 U/L 15-37 [facility] Thin prep Papanicolaou smear with manual screening 3 5-15 [facility] Basophil percentageon 2021 Chloride [Moles/Vol] 106 mmol/L 98-107 [facility] Work Phone: Glucose [Mass/Vol] 83 mg/dL 74-106 [facility] Work Phone: Potassium [Moles/Vol] 4.6 mmol/L 3.5-5.1 [facility] Work Phone: Sodium [Moles/Vol] 140 mmol/L 136-145 [facility] Work Phone: Laboratory - Chemistry and C hemistry - challengeon 02-12-2022 CO2 [Moles/Vol] 31.0 mmol/L 21.0-32.0 [facility] Work Phone: Urea nitrogen/Creatinine [Mass ratio] 15.6 mg/mg 10-20 [facility] Work Phone: No Panel Informationon 02-12 Estimated GFR (MDRD) Amer 94 mL/min >60 [facility] Work Phone: Comment on above: GFR Calc Estimated GFR (MDRD) Non-Af Amer 78 mL/min >60 [facility] Work Phone: Comment on above: Non- GFR Calc Serum or plasma calcium sammi urement (mass/volume)on 02-12-2022 Calcium [Mass/Vol] 9.3 mg/dL 8.5-10.1 [facility] Work Phone: Serum or plasma creatinine m easurement (mass/volume)on 02-12-2022 Creatinine [Mass/Vol] 0.77 mg/dL 0.55-1.02 [facility] Work Phone: Comment on above: The validity of the calculated GFR & GFRAA in patients over 70 years has not been determined. Clinical correlation is essential. Serum or plasma urea nitroge n measurement (mass/volume)on 02-12-2022 Urea nitrogen [Mass/Vol] 12 mg/dL 7-18 [facility] Work Phone: Thin prep Papanicolaou smear with manual screeningon 02-12-2022 Thin prep Papanicolaou smear with manual screening 3 5-15 [facility] Work Phone: Absolute lymphocyte counton 01-12-2022 Lymphocytes Auto (Unsp spec) [#/Vol] 1.07 10*3/uL 0.83-4.51 [facility] Work Phone: Basophil percentageon 2021 Basophils/100 WBC (Bld) 0.1 % 0-1 [facility] Work Phone: Bilirubin [Mass/Vol] 0.50 mg/dL 0.20-1.00 [facility] Work Phone: Comment on above: For patients on eltr ombopag therapy, use of Dimension [place] TBIL is not recommended. Chloride [Moles/Vol] 104 mmol/L 98-107 [facility] Work Phone: Cholesterol [Mass/Vol] 236 mg/dL <200 [facility] Work Phone: Comment on above: <200 mg/dL Desirable 200-240 mg/dL Borderline >240 mg/dL High Risk Eosinophils/100 WBC (Bld) 0.0 % 0-5 [facility] Work Phone: Glucose [Mass/Vol] 137 mg/dL 74-106 [facility] Work Phone: Comment on above: Fasting Glucose resu lt greater than or equal to 126 mg/dL suggests DIABETES MELLITUS per A.D.A. criteria. Neutrophils (Bld) [#/Vol] 9.1 10*3/uL 2.0-7.7 [facility] Work Phone: Neutrophils/100 WBC (Bld) 87.6 % 47-70 [facility] Work Phone: Potassium [Moles/Vol] 4.3 mmol/L 3.5-5.1 [facility] Work Phone: Protein [Mass/Vol] 6.9 g/dL 6.4-8.2 [facility] Work Phone: Sodium [Moles/Vol] 140 mmol/L 136-145 [facility] Work Phone: Triglyceride [Mass/Vol] 103 mg/dL <199 [facility] Work Phone: Comment on above: The drugs N-Acetylcy steine and Metamizole may falsely depress this assay.Serum Triglycerides Reference Interval Normal <150 mg/dL Borderline high 150 - 199 mg/dL High 200 - 499 mg/dL Very High > or = 500 mg/dL WBC (Bld) [#/Vol] 10.4 10*3/uL 4.4-11.0 [facility] Work Phone: Blood erythrocytes count (nu mber/volume)on 01-12-2022 RBC (Bld) [#/Vol] 4.17 10*6/uL 4.2-5.4 [facility] Work Phone: Blood hemoglobin measurement (mass/volume)on 01-12-2022 Hemoglobin (Bld) [Mass/Vol] 13.4 g/dL 12.0-15.0 [facility] Work Phone: Blood lymphocytes/100 leukoc yteson 01-12-2022 Lymphocytes/100 WBC (Bld) 10.3 % 19-41 [facility] Work Phone: Blood monocytes/100 leukocyt eson 01-12-2022 Monocytes/100 WBC (Bld) 1.2 % 0-10 [facility] Work Phone: Blood platelet mean volumeon 01-12-2022 Platelet mean volume (Bld) [Entitic vol] 9.3 fL 6.2-12.0 [facility] Work Phone: Determination of erythrocyte mean corpuscular volume (MCV)on 01-12-2022 MCV (RBC) [Entitic vol] 100.2 fL 81-99 [facility] Work Phone: Hematocrit Auto (Bld) [Volum e fraction]on 01-12-2022 Hematocrit (Bld) [Volume fraction] 41.8 % 37-47 [facility] Work Phone: Laboratory - Chemistry and C hemistry - challengeon 01-12-2022 ALP [Catalytic activity/Vol] 80 U/L 45-117 [facility] Work Phone: ALT [Catalytic activity/Vol] 28 U/L 13-56 [facility] Work Phone: CO2 [Moles/Vol] 32.0 mmol/L 21.0-32.0 [facility] Work Phone: Globulin (S) [Mass/Vol] 3.2 g/dL 2.2-4.2 [facility] Work Phone: Urea nitrogen/Creatinine [Mass ratio] 14.7 mg/mg 10-20 [facility] Work Phone: Laboratory - Hematology and Cell countson 01-12-2022 Erythrocyte distribution width (RBC) [Entitic vol] 44.7 fL 35.1-43.9 [facility] Work Phone: Erythrocyte distribution width (RBC) [Ratio] 12.0 % 11.6-14.6 [facility] Work Phone: Immature granulocytes/100 WBC (Bld) 0.800 % 0.0-0.9 [facility] Work Phone: Comment on above: IG% - Immature Granu locytes (promyelocytes, myelocytes and metamyelocytes) > 1% indicates that a LEFT SHIFT is Present. MCH (RBC) [Entitic mass] 32.1 pg 27.0-32.0 [facility] Work Phone: Nucleated RBC/100 WBC (Bld) [Ratio] 0 % 0-5 [facility] Work Phone: MCHC Auto (RBC) [Mass/Vol]on 01-12-2022 MCHC (RBC) [Mass/Vol] 32.1 g/dL 32-36 [facility] Work Phone: No Panel Informationon 01-12 Estimated GFR (MDRD) Amer 68 mL/min >60 [facility] Work Phone: Comment on above: GFR Calc Estimated GFR (MDRD) Non-Af Amer 56 mL/min >60 [facility] Work Phone: Comment on above: Non- GFR Calc Vitamin D 25-Hydroxy 31.0 ng/mL [facility] Work Phone: Comment on above: Vitamin D 25(OH) Sta tus Range Deficiency <20 ng/mL (50nmol/L) Insufficiency 20 - 30 ng/mL (50 - 75 nmol/L) Sufficiency 30 - 100 ng/mL (75 - 250 nmol/L) Toxicity >100 ng/mL (>250 nmol/L) Platelets bldon 01-12-2022 Platelets (Bld) [#/Vol] 319 10*3/uL 150-450 [facility] Work Phone: Serum or plasma albumin sammi urement (mass/volume)on 01-12-2022 Albumin [Mass/Vol] 3.7 g/dL 3.2-5.0 [facility] Work Phone: Serum or plasma albumin/glob ulin mass ratioon 01-12-2022 Albumin/Globulin [Mass ratio] 1.2 {ratio} 0.9-2.4 [facility] Work Phone: Serum or plasma calcium sammi urement (mass/volume)on 01-12-2022 Calcium [Mass/Vol] 9.1 mg/dL 8.5-10.1 [facility] Work Phone: Serum or plasma cholesterol in HDL measurement (mass/volume)on 01-12-2022 Cholesterol in HDL [Mass/Vol] 101 mg/dL >40 [facility] Work Phone: Comment on above: The drugs N-Acetylcy steine and Metamizole may falsely depress this assay. Reference Range HDL <40 mg/dL Low HDL Cholesterol HDL >or= 60 mg/dL High HDL Cholesterol Serum or plasma cholesterol in VLDL measurement (mass/volume)on 01-12-2022 Cholesterol in VLDL [Mass/Vol] 21 mg/dL 5-40 [facility] Work Phone: Serum or plasma creatinine m easurement (mass/volume)on 01-12-2022 Creatinine [Mass/Vol] 1.02 mg/dL 0.55-1.02 [facility] Work Phone: Comment on above: The validity of the calculated GFR & GFRAA in patients over 70 years has not been determined. Clinical correlation is essential. Serum or plasma low density lipoprotein (LDL) cholesterol measurement (mass/volume)on 01-12-2022 Cholesterol in LDL [Mass/Vol] 114 mg/dL 0-130 [facility] Work Phone: Serum or plasma urea nitroge n measurement (mass/volume)on 01-12-2022 Urea nitrogen [Mass/Vol] 15 mg/dL 7-18 [facility] Work Phone: Thin prep Papanicolaou smear with manual screeningon 01-12-2022 Thin prep Papanicolaou smear with manual screening 12 U/L 15-37 [facility] Work Phone: Thin prep Papanicolaou smear with manual screening 4 5-15 [facility] Work Phone: Replaced Document: Stool Occ ult Blood iFOBon 04-21-2017 GE use only - for [employer] import when terms are not otherwise specified . Invalid Interpretation Code [facility] Work Phone: STOB . Invalid Interpretation Code [facility] Work Phone: Office Visit: New Pt. Visito n 04-20-2017 Documentation of current medications (procedure) Done Invalid Interpretation Code [facility] Work Phone: Fall risk assessment No Invalid Interpretation Code [facility] Work Phone: Protein mass conc Done Invalid Interpretation Code [facility] Work Phone: Tobacco smoking status NHIS Never smoker Invalid Interpretation Code [facility] Work Phone: Tobacco use CPHS Never smoker Invalid Interpretation Code [facility] Work Phone: Vital Signs Date Time Vital Sign Value Performing Clinician Facility 02-20-2025 13:51-0400 Body height 157.[address] Stephane Anna MD Work Phone: [facility] 02-20-2025 13:51-0400 Body mass index (BMI) [Ratio] 22.5 kg/m2 Dr. Stephane Anna MD Work Phone: [facility] 02-20-2025 13:51-0400 Body weight 55.[address] Stephane Anna MD Work Phone: [facility] 02-20-2025 13:51-0400 Diastolic blood pressure 88 mm[Hg] Dr. Stephane Anna MD Work Phone: [facility] 02-20-2025 13:51-0400 Systolic blood pressure 149 mm[Hg] Dr. Stephane Anna MD Work Phone: [facility] 01-24-2025 08:52-0400 Body height 157.[address] Stpehane Anna MD Work Phone: [facility] 01-24-2025 08:52-0400 Body mass index (BMI) [Ratio] 22.6 kg/m2 Dr. Stephane Anna MD Work Phone: [facility] 01-24-2025 08:52-0400 Body temperature 97.8 [degF] Dr. Stephane Anna MD Work Phone: [facility] 01-24-2025 08:52-0400 Body weight 56.[address] Stephane Anna MD Work Phone: [facility] 01-24-2025 08:52-0400 Diastolic blood pressure 82 mm[Hg] Dr. Stephane Anna MD Work Phone: [facility] 01-24-2025 08:52-0400 Heart rate 94 /min Dr. Stephane Anna MD Work Phone: [facility] 01-24-2025 08:52-0400 Respiratory rate 16 /min Dr. Stephane Anna MD Work Phone: [facility] 01-24-2025 08:52-0400 SaO2% (BldA) [Mass fraction] 96 % Dr. Stephane Anna MD Work Phone: [facility] 01-24-2025 08:52-0400 Systolic blood pressure 132 mm[Hg] Dr. Stephane Anna MD Work Phone: [facility] 11-17-2024 15:20-0400 Body mass index (BMI) [Ratio] 22.6 kg/m2 Dr. Stephane Anna MD Work Phone: [facility] 11-17-2024 15:20-0400 Body weight 56.[address] Stephane Anna MD Work Phone: [facility] 11-17-2024 15:20-0400 Diastolic blood pressure 88 mm[Hg] Dr. Stephane Anna MD Work Phone: [facility] 11-17-2024 15:20-0400 Systolic blood pressure 150 mm[Hg] Dr. Stephane Anna MD Work Phone: [facility] 09-25-2024 08:23-0500 Body height 157.[address] Stephane Anna MD Work Phone: [facility] 09-25-2024 08:23-0500 Body mass index (BMI) [Ratio] 22.6 kg/m2 Dr. Stephane Anna MD Work Phone: [facility] 09-25-2024 08:23-0500 Body weight 56.[address] Stephane Anna MD Work Phone: [facility] 09-25-2024 08:23-0500 Diastolic blood pressure 82 mm[Hg] Dr. Stephane Anna MD Work Phone: [facility] 09-25-2024 08:23-0500 Systolic blood pressure 169 mm[Hg] Dr. Stephane Anna MD Work Phone: [facility] 01-13-2023 09:02-0400 Body height 157.[address] Stephane Anna Work Phone: [facility] 01-13-2023 09:02-0400 Body mass index (BMI) [Ratio] 23.2 kg/m2 Dr. Stephane Anna Work Phone: [facility] 01-13-2023 09:02-0400 Body temperature 98.7 [degF] Dr. Stephane Anna Work Phone: [facility] 01-13-2023 09:02-0400 Body weight 57.[address] Stephane Anna Work Phone: [facility] 01-13-2023 09:02-0400 Diastolic blood pressure 82 mm[Hg] Dr. Stephane Anna Work Phone: [facility] 01-13-2023 09:02-0400 Heart rate 79 /min Dr. Stephane Anna Work Phone: [facility] 01-13-2023 09:02-0400 Respiratory rate 16 /min Dr. Stephane Anna Work Phone: [facility] 01-13-2023 09:02-0400 SaO2% (BldA) [Mass fraction] 99 % Dr. Stephane Anna Work Phone: [facility] 01-13-2023 09:02-0400 Systolic blood pressure 126 mm[Hg] Dr. Stephane Anna Work Phone: [facility] 10-16-2022 20:04-0400 Diastolic blood pressure 88 mm[Hg] [facility] 10-16-2022 20:04-0400 Heart rate 86 /min [facility] 10-16-2022 20:04-0400 SaO2% (BldA) [Mass fraction] 99 % [facility] 10-16-2022 20:04-0400 Systolic blood pressure 146 mm[Hg] [facility] 10-16-2022 18:37-0400 Body height 157.48 cm [facility] 10-16-2022 18:37-0400 Body mass index (BMI) [Ratio] 24.3 kg/m2 [facility] 10-16-2022 18:37-0400 Body temperature 96.5 [degF] [facility] 10-16-2022 18:37-0400 Body weight 60.32 kg [facility] 10-16-2022 18:37-0400 Respiratory rate 18 /min [facility] 07-05-2022 09:36-0500 Body height 157.48 cm [facility] Work Phone: 07-05-2022 09:36-0500 Body mass index (BMI) [Ratio] 24.6 kg/m2 [facility] 07-05-2022 09:36-0500 Body temperature 98.3 [degF] [facility] 07-05-2022 09:36-0500 Body weight 61.1 kg [facility] 07-05-2022 09:36-0500 Diastolic blood pressure 94 mm[Hg] [facility] 07-05-2022 09:36-0500 Heart rate 78 /min [facility] 07-05-2022 09:36-0500 Respiratory rate 16 /min [facility] 07-05-2022 09:36-0500 SaO2% (BldA) [Mass fraction] 95 % [facility] 07-05-2022 09:36-0500 Systolic blood pressure 160 mm[Hg] [facility] 01-12-2022 13:11-0400 Body height 160.[address] Stephane Anna Work Phone: [facility] Work Phone: 01-12-2022 13:11-0400 Body mass index (BMI) [Ratio] 22.5 kg/m2 Dr. Stephane Anna Work Phone: [facility] Work Phone: 01-12-2022 13:11-0400 Body temperature 99.7 [degF] Dr. Stephane Anna Work Phone: [facility] Work Phone: 01-12-2022 13:11-0400 Body weight 57.[address] tSephane Anna Work Phone: [facility] Work Phone: 01-12-2022 13:11-0400 Diastolic blood pressure 74 mm[Hg] Dr. Stephane Anna Work Phone: [facility] Work Phone: 01-12-2022 13:11-0400 Heart rate 95 /min Dr. Stephane Anna Work Phone: [facility] Work Phone: 01-12-2022 13:11-0400 Respiratory rate 14 /min Dr. Stephane Anna Work Phone: [facility] Work Phone: 01-12-2022 13:11-0400 SaO2% (BldA) [Mass fraction] 96 % Dr. Stephane Anna Work Phone: [facility] Work Phone: 01-12-2022 13:11-0400 Systolic blood pressure 122 mm[Hg] Dr. Stephane Anna Work Phone: [facility] Work Phone: 12-29-2021 10:35-0400 Body mass index (BMI) [Ratio] 22.4 kg/m2 Dr. Stephane Anna Work Phone: [facility] Work Phone: 12-29-2021 10:35-0400 Body temperature 97 [degF] Dr. Stephane Anna Work Phone: [facility] Work Phone: 12-29-2021 10:35-0400 Body weight 57.[address] Stephane Anna Work Phone: [facility] Work Phone: 12-29-2021 10:35-0400 Diastolic blood pressure 70 mm[Hg] Dr. Stephane Anna Work Phone: [facility] Work Phone: 12-29-2021 10:35-0400 Heart rate 85 /min Dr. Stephane Anna Work Phone: [facility] Work Phone: 12-29-2021 10:35-0400 Respiratory rate 16 /min Dr. Stephane Anna Work Phone: [facility] Work Phone: 12-29-2021 10:35-0400 SaO2% (BldA) [Mass fraction] 97 % Dr. Stephane Anna Work Phone: [facility] Work Phone: 12-29-2021 10:35-0400 Systolic blood pressure 110 mm[Hg] Dr. Stephane Anna Work Phone: [facility] Work Phone: 12-27-2021 08:26-0400 Body temperature 97.8 [degF] Dr. Stephane Anna Work Phone: [facility] Work Phone: 12-27-2021 08:26-0400 Diastolic blood pressure 80 mm[Hg] Dr. Stephane Anna Work Phone: [facility] Work Phone: 12-27-2021 08:26-0400 Heart rate 81 /min Dr. Stephane Anna Work Phone: [facility] Work Phone: 12-27-2021 08:26-0400 Respiratory rate 16 /min Dr. Stephane Anna Work Phone: [facility] Work Phone: 12-27-2021 08:26-0400 SaO2% (BldA) [Mass fraction] 98 % Dr. Stephaen Anna Work Phone: [facility] Work Phone: 12-27-2021 08:26-0400 Systolic blood pressure 140 mm[Hg] Dr. Stephane Anna Work Phone: [facility] Work Phone: 04-20-2017 10:06-0400 BMI (Body Mass Index) 22.85 kg/m2 Stephane Anna MD [facility] Work Phone: 04-20-2017 10:06-0400 Body Temperature 97.3 [degF] Stephane Anna MD [facility] Work Phone: 04-20-2017 10:06-0400 BP Diastolic 77 mm[Hg] Stephane Anna MD [facility] Work Phone: 04-20-2017 10:06-0400 BP Systolic 122 mm[Hg] Stephane Anna MD [facility] Work Phone: 04-20-2017 10:06-0400 Height 160.02 cm Stephane Anna MD [facility] Work Phone: 04-20-2017 10:06-0400 Pulse (Heart Rate) 74 /min Stephane Anna MD [facility] Work Phone: 04-20-2017 10:06-0400 Respiratory Rate 16 /min Stephane Anna MD [facility] Work Phone: 04-20-2017 10:06-0400 Weight 58.51 kg Stephane Anna MD [facility] Work Phone: Encounters Encounter Date Encounter Type Care Provider Facility Start: 04-10-2025 ambulatory Stephane Anna [facility] ty:[facility] Start: 02-20-2025 End: 02-20-[address] Jennifer Mobley DO -[facility] Work Phone: Start: 02-20-2025 End: 02-20-[address] Stephane Anna MD Work Phone: -[facility] Start: 02-06-2025 End: 02-06-[address] Stephane Anna MD Work Phone: -[facility] [place] Start: 02-06-2025 End: 02-06-[address] Stephane Anna MD -[facility] [place] Work Phone: Start: 02-06-2025 End: 02-06-2025 ambulatory Stephane Anna Facility:[facility] Start: 01-25-2025 End: 01-25-[address] Stephane Anna MD Work Phone: -[facility] [place] Start: 01-25-2025 End: 01-25-[address] Stephane Anna MD -[facility] [place] Work Phone: Start: 01-24-2025 End: 01-24-[address] Stephane Anna MD -[facility] Work Phone: Start: 01-24-2025 End: 01-24-[address] Stephane Anna MD [facility] Start: 01-24-2025 End: 01-25-[address] Stephane Anna MD Work Phone: -[facility] Start: 11-17-2024 End: 11-17-[address] Jennifer Mobley DO -[facility] Work Phone: Start: 11-17-2024 End: 11-17-[address] Jennifer Mobley DO -[facility] Work Phone: Start: 11-17-2024 End: 11-17-2024 ambulatory [facility] Facility:[facility] Start: 11-17-2024 End: 11-17-2024 ambulatory [facility] Facility:[facility] Start: 11-10-2024 End: 11-10-[address] Stephane Anna MD Work Phone: [facility] Work Phone: Start: 11-10-2024 End: 11-10-[address] Jennifer Mobley DO -[facility] Work Phone: Start: 11-10-2024 End: 11-10-2024 ambulatory [facility] Facility:[facility] Start: 09-25-2024 End: 09-25-[address] Stephane Anna MD Work Phone: [facility] Work Phone: Start: 09-25-2024 End: 09-25-[address] Jennifer Mobley DO Laboratory, Specimen Work Phone: Start: 09-25-2024 End: 09-25-[address] Jennifer Mobley DO -[facility] Work Phone: Start: 09-25-2024 End: 09-25-2024 [facility] Start: 09-25-2024 End: 09-25-2024 ambulatory [facility] Facility:[facility] Start: 04-06-2023 End: 04-06-[address] Stephane Anna Work Phone: [facility] Work Phone: Start: 04-06-2023 End: 04-06-[address] Stephane Anna Work Phone: [facility]-Outpatient Breast Imaging Work Phone: Start: 01-13-2023 End: 01-13-[address] Stephane Anna Work Phone: [facility] Work Phone: Start: 01-13-2023 End: 01-13-2023 Encounter for general adult medical examination without abnormal findings Dr. Stephane Anna Work Phone: [facility] Start: 01-13-2023 End: 01-13-[address] Stephane Anna Work Phone: [facility] Start: 10-16-2022 End: 10-16-2022 Emergency department patient visit [facility]-Emergency Department Start: 07-05-2022 End: 07-05-2022 Emergency department patient visit [facility]-Emergency Department Start: 03-31-2022 End: 03-31-[address] Stephane Anna Work Phone: [facility] Work Phone: Start: 03-31-2022 End: 03-31-[address] Stephane Anna Work Phone: [facility]-Outpatient Breast Imaging Start: 02-12-2022 End: 02-12-[address] Stephane Anna Work Phone: [facility]-Laboratory, BIM Start: 01-12-[address] Aliza Anna Work Phone: [facility] Start: 01-12-2022 End: 01-12-2022 Encounter for general adult medical examination without abnormal findings Dr. Stephane Anna Work Phone: [facility] Start: 01-12-2022 End: 01-12-[address] Stephane Anna Work Phone: [facility] Start: 12-29-2021 End: 12-29-[address] Stephane Anna Work Phone: [facility] Start: 12-27-2021 End: 12-27-[address] Stephane Anna Work Phone: [facility] Start: 12-30-[address] Aliza Anna Work Phone: [facility] Procedures Date Procedure Procedure Detail Performing Clinician Start: 02-06-2025 Plain x-ray of pelvi s and lower extremity Dr. Stephane Anna MD Work Phone: Start: 02-06-2025 X-ray of lumbosacral spine Dr. Stephane Anna MD Work Phone: Start: 01-25-2025 Vitamin D, 25-hydrox y measurement Dr. Stephane Anna MD Work Phone: Comment on above: Vitamin D StatusDefi ciency: <20 ng/mL (50nmol/L)Insufficiency: 20-30 ng/mL (50-75 nmol/L)Sufficiency: 30-100 ng/mL (75-250 nmol/L)Toxicity: >100 ng/mL (>250 nmol/L) Start: 11-17-2024 Gram stain microscopy Cash Anna MD Work Phone: Start: 11-17-2024 End: 11-17-[address] Stephane moser MD Work Phone: Start: 11-10-[address] Aliza Anna MD Work Phone: Start: 04-06-2023 Dual energy X-ray absorptiometry Dr. Stephane Anna Work Phone: Start: 04-06-2023 Screening mammography Cash Anna Work Phone: Start: 07-05-2022 X-ray of chest posteroanterior view Start: 03-31-2022 Screening mammography Cash Anna Work Phone: Start: 04-20-2017 End: 04-21-2017 Hemoglobin.gastrointestina l.lower [Presence] in Stool by Immunoassay Stephane Anna MD Work Phone: Start: 04-20-2017 End: 04-21-2017 Mammogram, screening Stephane Anna MD Work Phone: Start: 04-20-2017 Screening for malign ant neoplasm of colon Screening, colon ca Stephane Anna MD Start: 04-20-2017 Screening mammography Screenin g mammogram for breast cancer Stephane Anna MD Start: 04-20-2017 End: 04-21-2017 Hemoglobin by Imm presence in stool Stephane Anna MD Work Phone: Start: 04-20-2017 End: 04-21-2017 Mammogram, screening Stephane Anna MD Work Phone: Start: 04-20-2017 Screening for malign ant neoplasm of colon Screening, colon ca Stephane Anna MD Start: 04-20-2017 Screening mammography Screenin g mammogram for breast cancer Stephane Anna MD Plan of Treatment Date Care Activity Detail Author Start: 07-05-2022 [facility] Start: 07-05-2022 Incentive spirometry [facility] Start: 07-20-2017 End: 07-20-2017 Appointment Appointment [facility] Work Phone: Start: 04-20-2017 End: 04-21-2017 Lower GI hemoglobin IA Ql (St) *Occult Blood, Stool [facility] Work Phone: Start: 04-20-2017 End: 04-21-2017 Mammogram, screening Mammogram, Screening, both breasts [facility] Work Phone: Start: 04-20-2017 End: 04-21-2017 Hemoglobin by Imm presence in stool *Occult Blood, Stool [facility] Work Phone: Start: 04-20-2017 End: 04-21-2017 Mammogram, screening Mammogram, Screening, both breasts [facility] Work Phone: CBC W Auto Different ial panel - Blood [facility] Comprehensive metabo lic 2000 panel - Serum or Plasma [facility] DXA Bone [Mass/Area] Bone density [facility] DXA Bone [Mass/Area] Bone density [facility] Lipid 1996 panel - S nguyen or Plasma [facility] MG Breast - bilatera l Screening [facility] Work Phone: MG Breast - bilatera l Screening [facility] MG Breast - bilatera l Screening [facility] Patient Education [facility] Work Phone: Patient referral [facility] Work Phone: US Pelvis [facility] Vitamin D, 25-hydrox y measurement [facility] XR Pelvis and Hip Views [facility] XR Spine Lumbar and Sacrum GE 4 Views [facility] [place]izations Immunization Date Immunization Notes Care Provider Tj tee 10-17-2020 Covid (Pfizer) Dr. Stephane Anna Work Phone: [facility] 09-26-2020 Covid (ImageVision) Dr. Stephane Anna Work Phone: [facility] Payers Date Payer Category Payer Self-pay [id number] 2024 Medicare [id number] 2024 Private Health Insurance [id number] Unknown [id number] 2.16.8 [id number] Unknown [id number] 2.16.8 [id number] Unknown [id number] 2.16.8 [id number] Unknown [id number] 2.16.8 [id number] Unknown [id number] 2.16.8 [id number] Unknown [id number] 2.16.8 [id number] Unknown [id number] 2.16.8 [id number] Unknown [id number] 2.16.8 [id number] Unknown [id number] 2.16.8 [id number] Unknown [id number] 2.16.8 [id number] Social History Date Type Detail Facility Start: 01-12-2022 End: 01-13-2023 Tobacco smoking status NHIS Unknown if ever smoked [facility] Start: 1950 Sex Assigned At Female [facility] Start: 09-12-2024 Tobacco smoking stat us NHIS Never smoked tobacco (finding) [facility] Start: 10-06-2024 End: 11-15-2024 Sex Female (finding) [facility] Clinical Notes 09-25-2024 to 02-06-2025 Note Date & Type Note Facility 02-06-2025 Radiology Diagnostic study note [facility] Imaging Services [address] [place] [address] L/S Spine Min 4 Views MR#: [id number] Acct: [id number] Name: FLORES MARSHALL Rep #: [id number] : 1950 F 74 From: Nadege Coles MD PCP: Dr. Stephane Anan MD Status: R EG CLI Study:L/S Spine Min 4 Views Date of Exam: 02/06/25 Exam# [id number] Ordering Dr: Aliza Anna MD EXAM: XR Lumbosacral Spine, 4 or 5 Views CLINICAL INDICATION: CHRONIC BACK PAIN TECHNIQUE: Frontal, lateral and bilateral oblique views of the lumbar spine. COMPARISON: No relevant prior studies available. FINDINGS: VERTEBRAE: Mild dextroconvex curvature of the lumbar spine centered around L2. Grade 1 retrolisthesis of L2 over L3 and L3 over L4. Mild endplate degenerative changes of L1 to L5. No acute fracture. SACRUM/COCCYX: Unremarkable as visualized. No acute fracture. DISC SPACES: No acute findings. No significant narrowing. SOFT TISSUES: Unremarkable. RAD/L/S Spine Min 4 Views IMPRESSION: Grade 1 retrolisthesis of L2 over L3 and L3 over L4. Reading Location[facility] CC: Dr. Stephane Anna MD ~ Associate Sales Manager: Signed [facility] 02-06-2025 Radiology Diagnostic study note [facility] Imaging Services [address] [place] [address] HIP, UNI W/ Pelvis 2-3 Views MR#: [id number] Acct: [id number] Name: FLORES MARSHALL Rep #: [id number] : 1950 F 74 From: Nadege Coles MD PCP: Dr. Stephane Anna MD Status: R EG CLI Study:HIP, UNI W/ Pelvis 2-3 Views Date of Ex am: 02/06/25 Exam# [id number] Ordering Dr: Aliza Anna MD EXAM: XR Right Hip With Pelvis When Performed, 2 or 3 Views CLINICAL INDICATION: RIGHT HIP PAIN TECHNIQUE: Two or three views of the right hip with pelvis when performed. COMPARISON: No relevant prior studies available. FINDINGS: BONES/JOINTS: Unremarkable. No dislocation. No acute fracture. SOFT TISSUES: Unremarkable. RAD/HIP, UNI W/ Pelvis 2-3 Views IMPRESSION: No acute fracture. Reading Location[facility] CC: Dr. Stephane Anna MD ~ Associate Sales Manager: Signed [facility] 11-17-2024 Evaluation note Diagnosis Onset Date Resolution Pelvic prolapse october 3:11pm [facility] Work Phone: 1(688) 203-445004-25-2025 Evaluation note* Diagnosis Onset Date Resolution Status Admit Date Pelvic prolapse chronic October 3:11pm Routine health maintenance acute January 24, 2025 8:48am Anxiety and depression chronic 2024 8:48am Chronic back pain chronic January 8:48am Hyperlipidemia chronic January 24, 2025 8:48am Hypertension chronic January 24 8:48am Pelvic prolapse chronic January 24, 2025 8:48am Right hip pain chronic January 24, 2025 8:48am [facility] Work Phone: 1(608) 838-888104-18-2025 Radiology Diagnostic study note [facility] Imaging Services [address] [place] [place], [place] [id number] Pelvic (Non ) MR#: [id number] Acct: [id number] Name: FLORES MARSHALL Rep #: [id number] : 1950 F 73 From: Nadege Zhang MD PCP: Dr. Stephane Anna MD Status: R EG CLI Study:Pelvic (Non ) Date of Exam: 11/10/24 Exam# [id number] Ordering Dr: Jennifer Nolasco DO PROCEDURE: PELVIC (NON ) ([facility]), 11/10/2024 REASON FOR EXAM: ENLARGED UTERUS TECHNIQUE: Grayscale and color doppler transabdominal pelvic ultrasound was performed. COMPARISON: None FINDINGS: Uterus: Suboptimally visualized by transabdominal only technique. 6.4 x 4.1 x 1.9 cm, Anteverted. Heterogeneous myometrium. Endometrium: 5 mm, unremarkable. Trace endometrial fluid. Cervix: Unremarkable. Right ovary: Suboptimally visualized by transabdominal only technique. 2.5 x 1.3 x 1.8 cm (estimated volume 1.2 mL), grossly unremarkable transabdominal appearance. Left ovary: Not visualized, likely due to postmenopausal small postmenopausal size, positioning, and/or shadowing bowel gas. Free fluid: None visualized. Other: Pessary is noted. Estimated bladder volume 138 mL. US/Pelvic (Non ) IMPRESSION: 1. No acute transabdominal findings noting that the LEFT ovary was not identified. 2. Endometrial thickness would be considered borderline abnormally increased for a postmenopausal female in the setting of abnormal bleeding. In the absence of abnormal bleeding, this would be considered high-normal. Additionally, trace endometrial fluid is present, probably unexpected in a postmenopausal female. Correlate with patient history and follow-up as indicated. 3. Mildly heterogeneous myometrium is a nonspecific finding which could be seen in the setting of adenomyosis. 4. Additional description as above. Reading Location: [id number] CC: Dr. Stephane Anna MD; Dr. Jennifer Mobley DO ~ Associate Sales Manager: Signed [facility]03-03-2025 NotePap Smear Specimen AdequacyMarch 2024 12:59amComment.Satisfactory for evaluation. Endocervical and/or squamous metaplasticcells (endocervical component)are present.[facility] INTER[facility]ACED A#[id number] Health System Selby General HospitalComment on above:Satisfactory for evaluation. Endocervical and/or squamous metaplasticcells (endocervical component)are present.09-25-2024 NotePap Smear Specimen AdequacyMar 2024 12:59amComment.Satisfactory for evaluation. Endocervical and/or squamous metaplasticcells (endocervical component)are present.[facility] INTER[facility] A#[id number] Health System Selby General HospitalComment on above:Satisfactory for evaluation. Endocervical and/or squamous metaplasticcells (endocervical component)are present.09-25-2024 Evaluation note* Diagnosis Onset Date Resolution Status Admit Date Cystocele with incomplete uterovaginal prolapse acute September 25, 2024 8:14am Pelvic prolapse chronic September 8:14am [facility] Work Phone: Evaluation note* Diagnosis Onset Date Resolution Status Contact dermatitis due to plants, except food acute Poison gisela dermatitis acute Health care maintenance acut e Poison gisela dermatitis acute Anxiety and depression chron ic Hyperlipidemia chronic Hypertension chronic [facility] Work Phone: Evaluation noteNo assessment information available [facility] Work Phone: Evaluation note* Diagnosis Onset Date Resolution Status Health care maintenance acut e Anxiety and depression chron ic Hyperlipidemia chronic Hypertension chronic Piriformis syndrome chronic [facility] Work Phone: Reason for referral (narrative)No reason for referral information availableMem[facility] Work Phone: Chief Complaint and Reason for Visit Chief Complaint HIVES/BLISTERS POISON GISELA 6 M FU Reason for Visit Contact dermatitis d ue to plants, except food Poison gisela dermatitis Health care maintenance Poison gisela dermatitis Anxiety and depression Hyperlipidemia Hypertension Chief Complaint HIVES/BLISTERS POISON GISELA 6 M FU SCREENING Reason for Visit Contact dermatitis d ue to plants, except food Poison gisela dermatitis Health care maintenance Poison gisela dermatitis Anxiety and depression Hyperlipidemia Hypertension Chief Complaint SCREENING fall Chief Complaint fall sciatic pain, back pain Chief Complaint sciatic pain, back p ain 1 Y FU Reason for Visit [facility] Anxiety and depression Hyperlipidemia Hypertension Piriformis syndrome Chief Complaint 1 Y FU SCREENING Reason for Visit Health care [facility] Anxiety and depression Hyperlipidemia Hypertension Piriformis syndrome Chief Complaint Admit Date Discuss surgical mgmt for uterovaginal p rolapse September 25, 2024 8:14am Reason for Visit Admit Date Cystocele with incomplete uterovaginal p rolapse September 25, 2024 8:14am Pelvic prolapse September 25, 2024 8:14 am Chief Complaint Admit Date Discuss surgical mgmt for uterovaginal p rolapse September 25, 2024 8:14am ENLARGED UTERUS November 10, 2024 1:1 8pm Chief Complaint Admit Date ENLARGED UTERUS November 10, 2024 1:1 8pm 6wk FU November 17, 2024 3:1 1pm YEARLY January 24, 2025 8:48a m Reason for Visit Admit Date Pelvic prolapse November 17, 2024 3:1 1pm Reason for Visit Admit Date Pelvic prolapse November 17, 2024 3:1 1pm Routine health maintenance January 24 8:48am Anxiety and depression January 24, 2025 8: 48am Chronic back pain January 24, 2025 8:48a m Hyperlipidemia January 24, 2025 8:48a m Hypertension January 24, 2025 8:48a m Pelvic prolapse January 24, 2025 8:48a m Right hip pain January 24, 2025 8:48a m Chief Complaint Admit Date ENLARGED UTERUS November 10, 2024 1:1 8pm 6wk FU November 17, 2024 3:1 1pm YEARLY January 24, 2025 8:48a m Chronic back pain Right Hip Pain February 062024 8:13am Chief Complaint Admit Date ENLARGED UTERUS November 10, 2024 1:1 8pm 6wk FU November 17, 2024 3:1 1pm YEARLY January 24, 2025 8:48a m Chronic back pain Right Hip Pain February 062024 8:13am PESSARY CHECK February 20, 2025 1:46 pm Family History No Family History Records Found Relationship Condition Age at Onset Recorded Date/T sumi father Cardiac disease Unknown Malignant neoplasm Unknown mother Cardiac disease Unknown Advance Directives No Advanced Directives Records Found Advance Directive Response Recorded Date/ Time Name of Medical Power of Liquor Blender kayleen July 05, 2022 9:39am Living Will Yes July 05, 2 022 9:39am Power of Liquor Blender Yes July 05, 2022 9:39am Advance Directive Response Recorded Date/ Time Name of Medical Power of Liquor Blender kayleen July 05, 2022 10:39am Living Will No October 16, 2022 8:06pm Power of Liquor Blender No October 16 8:06pm Advance Directive Response Recorded Date/ Time Living Will No October 16, 2022 8:06pm Power of Liquor Blender No October 16 8:06pm Advance Directive Response Recorded Date/ Time Living Will No October 16, 2022 8:06pm Do you have a Healthcare Power of Liquor Blender? No October 16, 2022 8:06pm Summary Purpose Additional Source Comments Goals (unrecognized section and content) Goals may be documented in a n alternate sectionGoals may be documented in an alternate sectionGoals may be documented in an alternate sectionGoals may be documented in an alternate sectionGoals may be documented in an alternate sectionGoals may be documented in an alternate sectionGoals may be documented in an alternate sectionGoals may be documented in an alternate sectionGoals may be documented in an alternate sectionGoals may be documented in an alternate sectionGoals may be documented in an alternate sectionGoals may be documented in an alternate section Care Teams (unrecognized sec tion and content) Team Status: Active Member Role Status Dates Dr. Stephane Anna MD Family Provider Active Dr. Stephane Anna MD Primary Care Provider Active Team Status: Inactive Member Role Status Dates Dr. Stephane Anna MD Primary Care Provider Active Dr. Andi Villatoro MD Attending Provider, Emergency Provider Active Team Status: Inactive Member Role Status Dates Dr. Stephane Anna MD Primary Care Provider Active Dr. Vikas Christensen DO Emergency Provider Active Team Status: Inactive Member Role Status Dates Dr. Stephane Anna MD Primary Care P ghazala, Attending Provider, Referring Provider Active Team Status: Inactive Member Role Status Dates Dr. Stephane Anna MD Primary Care Provider Active Dr. Vikas Christensen DO Attending Provider, Emergency Provider Active Team Status: Inactive Member Role Status Dates Dr. Stephane Anna MD Primary Care Provider Active Start: September 25, 2024 End: September 25, 2024 Dr. Stephane Anna MD Referring Provider Active Start: September 25, 2024 End: September 25, 2024 Dr. Jennifer Mobley DO Attending Provider Activ e Start: September 25, 2024 End: September 25, 2024 Team Status: Inactive Member Role Status Dates Dr. Stephane Anna MD Primary Care Provider Active Start: September 25, 2024 End: September 25, 2024 Dr. Jennifer Mobley DO Attending Provider Activ e Start: September 25, 2024 End: September 25, 2024 Dr. Jennifer Mobley DO Referring Provider Activ e Start: September 25, 2024 End: September 25, 2024 Team Status: Active Member Role Status Dates Dr. Stephane Anna MD Primary Care Provider Active Team Status: Inactive Member Role Status Dates Dr. Stephane Anna MD Primary Care Provider Active Start: November 10, 2024 End: November 10, 2024 Dr. Jennifer Mobley DO Attending Provider Activ e Start: November 10, 2024 End: November 10, 2024 Dr. Jennifer Mobley DO Referring Provider Activ e Start: November 10, 2024 End: November 10, 2024 Team Status: Active Member Role/Relationship Status Dates Dr. Stephane Anna MD Primary Care Provider Active Team Status: Inactive Member Role/Relationship Status Dates Dr. Stephane Anna MD Primary Care Provider Active Start: November 10, 2024 End: November 10, 2024 Dr. Jennifer Mobley DO Attending Provider Activ e Start: November 10, 2024 End: November 10, 2024 Dr. Jennifer Mobley DO Referring Provider Activ e Start: November 10, 2024 End: November 10, 2024 Team Status: Inactive Member Role/Relationship Status Dates Dr. Stephane Anna MD Primary Care Provider Active Start: November 17, 2024 End: November 17, 2024 Dr. Stephane Anna MD Referring Provider Active Start: November 17, 2024 End: November 17, 2024 Dr. Jennifer Mobley DO Attending Provider Activ e Start: November 17, 2024 End: November 17, 2024 Team Status: Inactive Member Role/Relationship Status Dates Dr. Stephane Anna MD Primary Care Provider Active Start: November 17, 2024 End: November 17, 2024 Dr. Jennifer Mobley DO Attending Provider Activ e Start: November 17, 2024 End: November 17, 2024 Dr. Jennifer Mobley DO Referring Provider Activ e Start: November 17, 2024 End: November 17, 2024 Team Status: Inactive Member Role/Relationship Status Dates Dr. Stephane Anna MD Primary Care Provider Active Start: January 24, 2025 End: January 24, 2025 Dr. Stephane Anna MD Attending Provider Active Start: January 24, 2025 End: January 24, 2025 Dr. Stephane Anna MD Referring Provider Active Start: January 24, 2025 End: January 24, 2025 Team Status: Inactive Member Role/Relationship Status Dates Dr. Stephane Anna MD Primary Care Provider Active Start: January 25, 2025 End: January 25, 2025 Dr. Stephane Anna MD Attending Provider Active Start: January 25, 2025 End: January 25, 2025 Dr. Stephane Anna MD Referring Provider Active Start: January 25, 2025 End: January 25, 2025 Team Status: Inactive Member Role/Relationship Status Dates Dr. Stephane Anna MD Primary Care Provider Active Start: February 06, 2025 End: February 06, 2025 Dr. Stephane Anna MD Attending Provider Active Start: February 06, 2025 End: February 06, 2025 Dr. Stephane Anna MD Referring Provider Active Start: February 06, 2025 End: February 06, 2025 Team Status: Inactive Member Role/Relationship Status Dates Dr. Stephane Anna MD Primary Care Provider Active Start: February 20, 2025 End: February 20, 2025 Dr. Stephane Anna MD Referring Provider Active Start: February 20, 2025 End: February 20, 2025 Dr. Jennifer Mobley DO Attending Provider Activ e Start: February 20, 2025 End: February 20, 2025 INFORMATION SOURCE (unrecogn ized section and content) DATE CREATED AUTHOR 04/08/2025 [facility] FOR RECORDS PERTAINING TO PATIENTS WHO ARE OR HAVE BEEN ENROLLED IN A CHEMICAL DEPENDENCY/SUBSTANCEABUSE PROGRAM, SOME INFORMATION MAY BE OMITTED. This clinical summary was aggregated from multiple sources. Caution should be exercised in using it in the provision of clinical care. This summary normalizes information from multiple sources, and as a consequence, information in this document may materially change the coding, format and clinical context of patient data. In addition, data may be omitted in some cases. CLINICAL DECISIONS SHOULD BE BASED ON THE PRIMARY CLINICAL RECORDS. [facility]. provides no warranty or guarantee of the accuracy or completeness of information in this document.
== END | disposition home or self-care (01) ==
LOC: OPBD 07:50
PROVIDERS: PCP Internal Medicine; Referring Provider Internal Medicine; Visit Provider Internal Medicine
DX: Z12.31 Encounter for screening mammogram for malignant neoplasm of breast (principal); Z78.0 Asymptomatic menopausal state
CPT/HCPCS: 77063; 77067; 77080